=== PATIENT | male | born 1945 | race Caucasian/White ===

== ENCOUNTER 2017-04-08 09:14 | Inpatient (IN) | payer OTHER, BC ==
[2017-04-08 09:41] VITALS: BMI 39.5
[2017-04-08] MEDS ORDERED: ONDANSETRON 4 MG/2 ML VIAL IVPB ONE (09:42)
[2017-04-08] MEDS ORDERED: PANTOPRAZOLE SODIUM 40 MG in SODIUM CHLORIDE 100 ML IVPB ONE (09:42)
--- NOTE | 2017-04-08 09:42 | PDOC ---
History of Present Illness - General Chief Complaint: Pain Stated Complaint: ABDOMINAL PAIN Time Seen by Provider: 04/08/17 09:15 - History of Present Illness Initial Comments: 04/08/17 09:46 71 M with h/o HTN presenting to ER with RLQ abdominal pain and SOB. Pt was here last night for similar complaint of RLQ abdominal pain. Pt was found to have R inguinal interparietal hernia and DC'ed home. Pt denies any changes in the pain. He denies N/V. Is still having normal BMs (last one was last night). He states he took a percocet, which made him very drowsy, so he did not take any additional doses this morning. Today, he states the pain has been persistent, which prompted him to come to ER. Denies any acute changes in this pain. Incidentally, pt was found to be hypoxic to 93% and tachycardic to 110s in ER. Upon questioning, pt admits that he has been SOB for the past day or two. Denies any chest pain. Denies leg swelling. EKG done today shows pt in afib with RVR. Pt denies h/o afib, is not on AC. Pt follows with Dr. Jagjit Caballero, executive producer prom[employer]. I spoke with on-call executive producer promos covering for Dr. Caballero and obtained the following : EKG with NSR 04/2016 SHANNA 08/2016 showed mild LVH, EF 55-60% No documented history of atrial fibrillation. Past History - Past Medical History Allergies/Adverse Reactions: Allergies Allergy/AdvReac Type Severity Reaction Status Date / Time No Known Allergies Allergy Verified 04/08/17 09:23 Home Medications: Ambulatory Orders Felodipine [Felodipine ER] 10 mg PO DAILY 04/07/17 Labetalol HCl [Normodyne -] 300 mg PO BID 04/07/17 Olmesartan Medoxomil 40 mg PO BID 04/07/17 Oxycodone HCl/Acetaminophen [Percocet 5-325 mg Tablet] 2 tab PO Q6H PRN #8 tablet MDD 8 TABS 04/08/17 COPD: No HTN: Yes - Surgical History Abdominal Surgery: Yes (STOMACH RING) - Suicide/Smoking/Psychosocial Hx Smoking History: Never smoked Review of Systems - Review of Systems Comments:: 04/08/17 09:53 "GENERAL/CONSTITUTIONAL: No fever or chills. No weakness. HEAD, EYES, EARS, NOSE AND THROAT: No change in vision. No ear pain or discharge. No sore throat. CARDIOVASCULAR: +SOB, No chest pain. RESPIRATORY: No cough, wheezing, or hemoptysis. GASTROINTESTINAL: + RLQ pain, No nausea, vomiting, diarrhea or constipation. GENITOURINARY: No dysuria, frequency, or change in urination. MUSCULOSKELETAL: No joint or muscle swelling or pain. No neck or back pain. SKIN: No rash NEUROLOGIC: No headache, vertigo, loss of consciousness, or change in strength/ sensation. ENDOCRINE: No increased thirst. No abnormal weight change. HEMATOLOGIC/LYMPHATIC: No anemia, easy bleeding, or history of blood clots. ALLERGIC/IMMUNOLOGIC: No hives or skin allergy. " *Physical Exam - Physical Exam Comments: 04/08/17 10:08 "GENERAL: Awake, alert, and fully oriented, in no acute distress HEAD: No signs of trauma EYES: PERRLA, EOMI, sclera anicteric, conjunctiva clear ENT: Auricles normal inspection, hearing grossly normal, nares patent, oropharynx clear without exudates. Moist mucosa NECK: Nontender, no stepoffs, Normal ROM, supple, no lymphadenopathy, JVD, or masses LUNGS: Breath sounds equal, clear to auscultation bilaterally. No wheezes, and no crackles HEART: Rapid irregular rate and rhythm, normal S1 and S2, no murmurs, rubs or gallops ABDOMEN: Soft, nontender, normoactive bowel sounds. No guarding, no rebound. No masses : no palpable scrotal masses, no tenderness EXTREMITIES: Normal range of motion, no edema. No clubbing or cyanosis. No cords, erythema, or tenderness NEUROLOGICAL: Cranial nerves II through XII intact. 5/5 strength and sensation in all extremities, Normal speech, normal gait SKIN: Warm, Dry, normal turgor, no rashes or lesions noted. " Heart Score/ECG Review - ECG Impressions Comment:: 04/08/17 10:09 atrial fibrillation, no ST elevations or depressions, axis wnl, no TW inversions , rate 114 ED Treatment Course - LABORATORY CBC & Chemistry Diagram: 04/08/17 09:45 04/08/17 09:45 - RADIOLOGY Radiology Studies Ordered: Category Date Time Status CHEST PA & LAT [RAD] Stat Radiology 04/08/17 09:33 Ordered Medical Decision Making - Medical Decision Making 04/08/17 10:09 71 M with abdominal pain likely 2/2 R inguinal hernia found on CT last night, incidentally found to be in new afib. Pt reports SOB and was found to be hypoxic to 93% on RA, concerning for possible CHF component as well. With regard to abdominal pain, pt reports no changes since last night - is not clinically obstructed, no N/V/distention. - Labs, trop, BNP - CXR - Will need admission for A/C and echo - Possible surgical consult for hernia repair 04/08/17 11:33 Sign out given to hospitalist. *DC/Admit/Observation/Transfer Diagnosis at time of Disposition: CHF (congestive heart failure), Atrial fibrillation with RVR - Discharge Dispostion Condition at time of disposition: Stable Admit: Yes - Referrals - Patient Instructions - Post Discharge Activity - Attestations Physician Attestion: 04/08/17 11:33 I, Dr. Ramo Lind MD, attest that this document has been prepared under my direction and personally reviewed by me in its entirety. I further attest, that it accurately reflects all work, treatment, procedures and medical decision -making performed by me.
[2017-04-08] MEDS ORDERED: oxyCODONE HCL 5 MG TABLET PO ONE (09:43)
[2017-04-08] MEDS ORDERED: ONDANSETRON 4 MG/2 ML VIAL ONE (09:47)
[2017-04-08] MEDS ORDERED: PANTOPRAZOLE SODIUM 40 MG VIAL ONE (09:47)
[2017-04-08] MEDS ORDERED: morphine CARPU-JECT 4 MG/1 ML DISP.SYRIN IVPUSH ONE (10:02)
[2017-04-08] MEDS ORDERED: morphine CARPU-JECT 2 MG/1 ML DISP.SYRIN ONE (10:08)
[2017-04-08] MEDS ORDERED: ASPIRIN 325 MG TABLET PO ONE (10:11)
[2017-04-08 10:12] LABS: HEMOGLOBIN 14.5 GM/dl (11.7-16.9)
[2017-04-08 10:15] LABS: HEMATOCRIT 44.7 % (35.4-49); MCH 29.6 pg (25.7-33.7); MCHC 32.5 g/dl (32.0-35.9); MEAN CELL VOLUME 91.1 fl (80-96); PLATELET COUNT 207 K/MM3 (134-434); RBC 4.91 M/mm3 (4.00-5.60); RDW 13.7 % (11.9-15.9); WHITE BLOOD COUNT 12.1 K/mm3 (4.0-10.8)
[2017-04-08 10:17] LABS: ALBUMIN 4.2 g/dl (3.5-5.0); ALK PHOS 57 U/L (32-92); ANION GAP 9 (8-16); BILIRUBIN,TOTAL 1.5 mg/dl (0.2-1.0); BLOOD UREA NITROGEN 18 mg/dl (7-18); CALCIUM 8.4 mg/dl (8.4-10.2); CHLORIDE 100 mmol/L (98-107); CO2 25 mmol/L (22-28); CREATININE 1.5 mg/dl (0.6-1.3); GLUCOSE,RANDOM 152 mg/dl (74-106); POTASSIUM 3.8 mmol/L (3.5-5.1); SGOT/AST 78 U/L (10-42); SGPT/ALT 57 U/L (10-40); SODIUM 134 mmol/L (136-145); TOT PROT 6.9 g/dl (6.4-8.3)
[2017-04-08] MEDS ORDERED: ASPIRIN 325 MG TABLET ONE (10:18)
[2017-04-08 10:19] LABS: INR 1.13 (0.82-1.09); PROTHROMBIN TIME (PATIENT) 12.6 SEC (10.2-13.0)
[2017-04-08 10:20] LABS: ADD RBC MORPHOLOGY YES
[2017-04-08 11:01] LABS: PLATELET ESTIMATE ADEQUATE
[2017-04-08] MEDS ORDERED: PATIENT'S OWN MEDICATION (NON-FORMULARY) (Olmesartan Medoxomil [Olmesartan Medoxomil] 40 M PO SCH (11:45)
[2017-04-08] MEDS ORDERED: FELODIPINE 10 MG PO SCH (11:45)
[2017-04-08] MEDS ORDERED: amLODIPine BESYLATE 10 MG TABLET (FP) PO ONE (11:50)
[2017-04-08] MEDS ORDERED: amLODIPine BESYLATE 5 MG TABLET (FP) ONE (12:11)
--- NOTE | 2017-04-08 13:01 | CON.CARD ---
Consult Consult Specialty:: Cardiology Referred by:: Dr. Ramo Lind Reason for Consultation:: New onset atrial fibrillation - History of Present Illness Chief Complaint: Abd pain, new onset afib History of Present Illness: 71 yo male with HTN, mild CAD (per 2006 cath), obesity s/p lap band, who presented to ER with RLQ abdominal pain. Patient was previously seen here in ED last night with similar complaint of RLQ abdominal pain and was found to have R intraparietal hernia and DC'ed home. However, the pain persisted and he returned to ED today. He was found to be in new onset afib with HR 110s. BNP 7407. CXR negative for effusions or infiltrates. He currently denies chest pain , dyspnea, edema, or palpitations. 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 Jagjit Caballero, who last saw the patient in January 2017. - History Source History Provided By: Patient Limitations to Obtaining History: No Limitations - Past Medical History Cardio/Vascular: Yes: CAD (mild per 2006 cardiac cath), HTN Musculoskeletal: Yes: Osteoarthritis Additional Medical History: Obesity - Past Surgical History Past Surgical History: Yes: Bariatric Surgery (Lap band), Joint Replacement ( Bilateral total knee replacement) Additional Surgical History: Right foot bunion removal, C6-7 disckectomy with fusion 05/16/16 - Alcohol/Substance Use Hx Alcohol Use: Yes History of Substance Use: reports: None - Smoking History Smoking history: Never smoked Home Medications - Allergies Allergies/Adverse Reactions: Allergies Allergy/AdvReac Type Severity Reaction Status Date / Time No Known Allergies Allergy Verified 04/08/17 09:23 - Home Medications Home Medications: Ambulatory Orders Felodipine [Felodipine ER] 10 mg PO HS 04/07/17 Labetalol HCl [Normodyne -] 300 mg PO BID 04/07/17 Olmesartan Medoxomil 40 mg PO BID 04/07/17 Oxycodone HCl/Acetaminophen [Percocet 5-325 mg Tablet] 2 tab PO Q6H PRN #8 tablet MDD 8 TABS 04/08/17 Family Disease History - Family Disease History Family History: Unremarkable (No premature CAD) Review of Systems - Review of Systems Constitutional: reports: No Symptoms Eyes: reports: No Symptoms HENT: reports: No Symptoms Neck: reports: No Symptoms Cardiovascular: reports: No Symptoms Respiratory: reports: No Symptoms Gastrointestinal: reports: Abdominal Pain (Lower abdominal pain - resolved now) Genitourinary: reports: No Symptoms Musculoskeletal: reports: Joint Pain Neurological: reports: No Symptoms Endocrine: reports: No Symptoms Hematology/Lymphatic: reports: No Symptoms Psychiatric: reports: No Symptoms Vital Signs: Vital Signs Temperature 98.1 F 04/08/17 09:15 Pulse Rate 94 H 04/08/17 12:23 Respiratory Rate 20 04/08/17 12:23 Blood Pressure 137/79 04/08/17 12:23 O2 Sat by Pulse Oximetry (%) 99 04/08/17 12:23 Constitutional: Yes: No Distress, Obese Eyes: Yes: Conjunctiva Clear, EOM Intact HENT: Yes: Atraumatic, Normocephalic Respiratory: Yes: CTA Bilaterally Gastrointestinal: Yes: Normal Bowel Sounds, Soft. No: Tenderness Cardiovascular: Yes: Pulse Irregular JVD: No Carotid Bruit: No Heart Sounds: Yes: S1, S2 Murmur: No: Systolic Murmur Edema: No Peripheral Pulses WNL: Yes Neurological: Yes: Alert, Oriented, Cran Nerves II-XII Intact Psychiatric: Yes: Alert, Oriented - Other Data Labs, Other Data: CBC, BMP 04/08/17 09:45 04/08/17 09:45 INR, PTT INR 1.13 (0.82-1.09) 04/08/17 09:45 Troponin, BNP 04/08/17 04/08/17 09:45 09:45 Troponin I 0.03 B-Natriuretic Peptide 7407.36 H Troponin, BNP 04/08/17 04/08/17 09:45 09:45 Troponin I 0.03 B-Natriuretic Peptide 7407.36 H Echo: Report Reviewed (06/22/16 Echo (at [facility]): Dilated LV with normal systolic funcion, LVEF 56%. Borderline LVH. Mild biatrial enlargement. Mild MR. Trace TR. Mild NV. Trivial pericardial effusion. 09/06/16 SHANNA (at [facility]): Normal LV systolic function. No ASD or PFO with bubble study with agitated saline & with Valsalva. Mild TR. Trace TR. Trace NV. Mildly dilated aortic root (3.8 cm).) Imaging - Results Chest X-ray: Report Reviewed (04/08/17: No effusions or infiltrates. Cardiomegaly. Lap band device noted.), Image Reviewed Cat Scan: Report Reviewed (04/07/17 CT AP: 3.7 left renal cortical structure ( neoplastic versus complex cyst). Right sided intraparietal abdominal wall hernia. Laparoscopic gastric band. Sigmoid diverticulosis. Moderate umbilical hernia. Small left inguinal hernia.) Assessment/Plan 71 yo male with HTN, mild CAD (per 2007 cath), obesity s/p lap band, who presented to ER with RLQ abdominal pain. Previously seen in ED last night with similar complaint of RLQ abdominal pain and was found to have R intraparietal hernia. He was admitted today with continued intermittent right lower abdominal pain and was found to be in new onset afib with HR 110s. BNP 7407. CXR negative for effusions or infiltrates. Despite elevated BNP, no complaints or CXR findings to suggest CHF. Currently rate controlled on labetalol 300 mg po bid. [id number] score = 2 RECS: Will continue his labetalol 300 mg po bid for afib rate control. Continue amlodipine and valsartan for BP control. Will continue anticoagulation with Lovenox for now. 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 Jagjit Caballero ([facility]) in 1-2 weeks. Echocardiogram has been ordered but he does not have to stay for this study, which can be done as outpatient with his own high lift driver. Please call with questions.
--- NOTE | 2017-04-08 15:12 | HP ---
CHIEF COMPLAINT: Lower abdominal pain PCP: Dr. Lewis CARDIOLOGY: Dr. Jagjit Caballero HISTORY OF PRESENT ILLNESS: 71 year-old male with a PMH significant for HTN, CAD obesity s/p gastric banding , and umbilical hernia. Patient presented to the [facility] ED on 04/07 complaining of RLQ pain. CTAP showed a right interparietal abdominal wall hernia. Patient was given pain medication, he felt better, and was discharged home. This morning patient returned to the ED with the same complaint of lower abdominal pain. He also complained of SOB. ECG showed patient to be in atrial fibrillation, a new finding, with rate in 90's. 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 Smoking: no Alcohol: no Drugs: no Family History: father 80 non-Hodgkins lymphoma; mother 94 leg fracture complications; sister alive with a "blood" cancer; two brothers a & w Allergies No Known Allergies Allergy (Verified 04/08/17 09:23) HOME MEDICATIONS: Home Medications Medication Instructions Recorded Felodipine [Felodipine ER] 10 mg PO HS 04/07/17 Labetalol HCl [Normodyne -] 300 mg PO BID 04/07/17 Olmesartan Medoxomil 40 mg PO BID 04/07/17 Oxycodone HCl/Acetaminophen 2 tab PO Q6H PRN #8 tablet MDD 8 04/08/17 [Percocet 5-325 mg Tablet] TABS REVIEW OF SYSTEMS CONSTITUTIONAL: Absent: fever, chills, diaphoresis, generalized weakness, malaise, loss of appetite, weight change HEENT: Absent: rhinorrhea, nasal congestion, throat pain, throat swelling, difficulty swallowing, mouth swelling, ear pain, eye pain, visual changes CARDIOVASCULAR: +SOB Absent: chest pain, syncope, palpitations, irregular heart rate, lightheadedness , peripheral edema RESPIRATORY: Absent: cough, shortness of breath, dyspnea with exertion, orthopnea, wheezing, stridor, hemoptysis GASTROINTESTINAL: +lower abdominal pain Absent: abdominal distension, nausea, vomiting, diarrhea, constipation, melena, hematochezia GENITOURINARY: Absent: dysuria, frequency, urgency, hesitancy, hematuria, flank pain, genital pain MUSCULOSKELETAL: Absent: myalgia, arthralgia, joint swelling, back pain, neck pain SKIN: Absent: rash, itching, pallor HEMATOLOGIC/IMMUNOLOGIC: Absent: easy bleeding, easy bruising, lymphadenopathy, frequent infections ENDOCRINE: Absent: unexplained weight gain, unexplained weight loss, heat intolerance, cold intolerance NEUROLOGIC: Absent: headache, focal weakness or paresthesias, dizziness, unsteady gait, seizure, mental status changes, bladder or bowel incontinence PSYCHIATRIC: Absent: anxiety, depression, suicidal or homicidal ideation, hallucinations. PHYSICAL EXAMINATION Vital Signs - 24 hr 04/08/17 04/08/17 04/08/17 09:15 10:15 10:55 Temperature 98.1 F Pulse Rate 96 H Pulse Rate [ 96 H 96 H Left Radial] Respiratory 18 20 20 Rate Blood Pressure 140/93 Blood Pressure 150/90 127/83 [Left Arm] O2 Sat by Pulse 93 L 93 L 98 Oximetry (%) 04/08/17 04/08/17 04/08/17 12:23 13:19 14:22 Temperature 97.8 F 98.7 F Pulse Rate 97 H 91 H Pulse Rate [ 94 H Left Radial] Respiratory 20 18 18 Rate Blood Pressure 135/78 126/78 Blood Pressure 137/79 [Left Arm] O2 Sat by Pulse 99 93 L Oximetry (%) GENERAL: Awake, alert, and fully oriented, in no acute distress. HEAD: Normal with no signs of trauma. EYES: Pupils equal, round and reactive to light, extraocular movements intact, sclera anicteric, conjunctiva clear. No lid lag. EARS, NOSE, THROAT: Ears normal, nares patent, oropharynx clear without exudates. Moist mucous membranes. NECK: Normal range of motion, supple without lymphadenopathy, JVD, or masses. LUNGS: Breath sounds equal, clear to auscultation bilaterally. No wheezes, and no crackles. No accessory muscle use. HEART: Irregular S1 and S2 without murmur, rub or gallop. ABDOMEN: Soft, nontender, not distended, normoactive bowel sounds, no guarding, no rebound, no masses. MUSCULOSKELETAL: Normal range of motion at all joints. No bony deformities or tenderness. No CVA tenderness. UPPER EXTREMITIES: 2+ pulses, warm, well-perfused. No cyanosis. No clubbing. No peripheral edema. LOWER EXTREMITIES: 2+ pulses, warm, well-perfused. No calf tenderness. No peripheral edema. NEUROLOGICAL: Cranial nerves II-XII intact. Normal speech. Laboratory Results - last 24 hr 04/08/17 04/08/17 04/08/17 09:45 09:45 09:45 WBC 12.1 H RBC 4.91 Hgb 14.5 Hct 44.7 MCV 91.1 MCH 29.6 MCHC 32.5 RDW 13.7 Plt Count 207 MPV 10.0 Neutrophils % No Result Required. Neutrophils % (Manual) 85.0 H Lymphocytes % No Result Required. Lymphocytes % (Manual) 11.0 D Monocytes % (Manual) 4 Platelet Estimate Adequate PT with INR INR PTT (Actin FS) Sodium 134 L Potassium 3.8 Chloride 100 Carbon Dioxide 25 Anion Gap 9 BUN 18 Creatinine 1.5 H Creat Clearance w eGFR 46.27 Random Glucose 152 H D Calcium 8.4 Total Bilirubin 1.5 H D AST 78 H D ALT 57 H D Alkaline Phosphatase 57 Creatine Kinase Creatine Kinase Index CK-MB (CK-2) Troponin I B-Natriuretic Peptide 7407.36 H Total Protein 6.9 Albumin 4.2 04/08/17 04/08/17 04/08/17 09:45 09:45 09:45 WBC RBC Hgb Hct MCV MCH MCHC RDW Plt Count MPV Neutrophils % Neutrophils % (Manual) Lymphocytes % Lymphocytes % (Manual) Monocytes % (Manual) Platelet Estimate PT with INR 12.6 INR 1.13 PTT (Actin FS) 27.8 Sodium Potassium Chloride Carbon Dioxide Anion Gap BUN Creatinine Creat Clearance w eGFR Random Glucose Calcium Total Bilirubin AST ALT Alkaline Phosphatase Creatine Kinase Creatine Kinase Index CK-MB (CK-2) Troponin I 0.03 B-Natriuretic Peptide Total Protein Albumin 04/08/17 09:45 WBC RBC Hgb Hct MCV MCH MCHC RDW Plt Count MPV Neutrophils % Neutrophils % (Manual) Lymphocytes % Lymphocytes % (Manual) Monocytes % (Manual) Platelet Estimate PT with INR INR PTT (Actin FS) Sodium Potassium Chloride Carbon Dioxide Anion Gap BUN Creatinine Creat Clearance w eGFR Random Glucose Calcium Total Bilirubin AST ALT Alkaline Phosphatase Creatine Kinase 186 Creatine Kinase Index 2.9 CK-MB (CK-2) 5.4 H Troponin I B-Natriuretic Peptide I Total Protein Albumin Imaging 04/08/17 CXR: No effusions or infiltrates. Cardiomegaly. Lap band device noted 04/07/17 CTAP: 3.7cm left renal cortical structure (neoplastic versus complex cyst). Right sided intraparietal abdominal wall hernia. Laparoscopic gastric band. Sigmoid diverticulosis. Moderate umbilical hernia. Small left inguinal hernia; small bilateral pleural effusions; interstitial pulmonary congestion ASSESSMENT/PLAN 71 year-old male with a PMH significant for HTN, CAD obesity s/p gastric banding , and umbilical hernia. Admitted for heart failure and newly diagnosed atrial fibrillation with RVR. Also with right interparietal abdominal wall hernia. Atrial fibrillation with RVR, newly diagnosed --ECG afib @ 114, now in 90s --continue labetolol for rate control --[id number] score = 2 --start full dose lovenox, switch to Eliquis on discharge --troponins pending --cardiology following r/o Heart failure --06/22/16 Echo: dilated LV with normal systolic funcion, LVEF 56%. Borderline LVH. Mild biatrial enlargement. Mild MR. Trace TR. Mild VT. Trivial pericardial effusion --09/06/16 SHANNA: normal LV systolic function. No ASD or PFO with bubble study with agitated saline & with Valsalva. Mild TR. Trace TR. Trace VT. Mildly dilated aortic root (3.8 cm). --clinical signs of HF: BNP 7400, 04/07 CT shows small bilateral pleural effusions and interstitial pulmonary congestion, complains of mild SOB, elevated bili, transaminases consistent with congestive hepatopathy --will hold diuretic for now due to JERMAINE; wait for repeat bmp and urine studies JERMAINE --Cr 1.0 yesterday, 1.5 today --repeat bmp --urine studies, FeNa CAD --cath 06/2006: mild LAD and PDA changes, normal LV function --continue amlodipine, labetolol; not on regular ASA or statin Hypertension --continue amlodipine, valsartan, labetolol Obesity s/p gastric banding --no acute issues Interparietal abdominal wall hernia --outpatient follow up with surgeon FEN Fluids: PO intake adequate Electrolytes: replete as indicated Nutrition: low sodium DVT prophylaxis: on full dose Eliquis Dispo: continues to require inpatient care. Full code. Visit type - Emergency Visit Emergency Visit: Yes ED Registration Date: 04/08/17 Care time: The patient presented to the Emergency Department on the above date and was hospitalized for further evaluation of their emergent condition. - New Patient This patient is new to me today: Yes Date on this admission: 04/08/17 - Critical Care Critical Care patient: No
[2017-04-08] MEDS ORDERED: LABETALOL HCL 100 MG TABLET (FP) ONE ×2 (16:04→16:05)
[2017-04-08] MEDS: LABETALOL HCL 200 MG TABLET (FP) PO SCH (16:08)
[2017-04-08] MEDS: ENOXAPARIN NA (PORCINE) 120 MG/0.8 ML DISP.SYRIN SQ SCH ×2 (16:08→23:00)
[2017-04-08 18:12] LABS: ALBUMIN 3.9 g/dl (3.5-5.0); ALK PHOS 51 U/L (32-92); ANION GAP 9 (8-16); BILIRUBIN,TOTAL 1.4 mg/dl (0.2-1.0); BLOOD UREA NITROGEN 19 mg/dl (7-18); CHLORIDE 100 mmol/L (98-107); CO2 25 mmol/L (22-28); CREATININE 1.5 mg/dl (0.6-1.3); GLUCOSE,RANDOM 134 mg/dl (74-106); MAGNESIUM 1.8 mg/dL (1.8-2.4); POTASSIUM 3.9 mmol/L (3.5-5.1); SGOT/AST 149 U/L (10-42); SGPT/ALT 97 U/L (10-40); SODIUM 134 mmol/L (136-145); TOT PROT 6.4 g/dl (6.4-8.3)
[2017-04-08] MEDS: amLODIPine BESYLATE 10 MG TABLET (FP) PO SCH (21:46)
[2017-04-08] MEDS ORDERED: VALSARTAN 160 MG TABLET (UD) PO SCH (22:00)
--- NOTE | 2017-04-09 09:04 | PN ---
Progress Note, Physician History of Present Illness: Per patient and nursing this AM, patient had temp of 100.2. Denies chest pain or dyspnea. - Current Medication List Current Medications: Active Medications Amlodipine Besylate (Norvasc -) 10 mg PO HS [facility] Last Admin: 04/08/17 21:46 Dose: 10 mg Enoxaparin Sodium (Lovenox -) 120 mg SQ BID [facility] Last Admin: 04/08/17 23:00 Dose: 120 mg Labetalol HCl (Normodyne -) 300 mg PO BID [facility] Last Admin: 04/08/17 16:08 Dose: 300 mg Valsartan (Diovan -) 320 mg PO DAILY [facility] - Objective Vital Signs: Vital Signs Temperature 99.0 F 04/09/17 06:00 Pulse Rate 72 04/09/17 06:00 Respiratory Rate 19 04/09/17 06:00 Blood Pressure 143/94 04/09/17 06:00 O2 Sat by Pulse Oximetry (%) 96 04/09/17 07:46 Constitutional: Yes: No Distress, Obese Eyes: Yes: Conjunctiva Clear, EOM Intact HENT: Yes: Atraumatic, Normocephalic Cardiovascular: Yes: Regular Rate and Rhythm, Pulse Irregular. No: JVD, Murmur Respiratory: Yes: CTA Bilaterally Edema: No Neurological: Yes: Alert, Oriented, Cran Nerves II-XII Intact ...Motor Strength: WNL Psychiatric: Yes: WNL Labs: INR, PTT INR 1.13 (0.82-1.09) 04/08/17 09:45 Assessment/Plan 71 yo male with HTN, mild CAD (per 2007 cath), obesity s/p lap band, who presented to ER with RLQ abdominal pain. Previously seen in ED last night with similar complaint of RLQ abdominal pain and was found to have R intraparietal hernia. He was admitted today with continued intermittent right lower abdominal pain and was found to be in new onset afib with HR 110s. BNP 7407. CXR negative for effusions or infiltrates. Despite elevated BNP, no complaints or CXR findings to suggest CHF. Currently rate controlled on labetalol 300 mg po bid. [id number] score = 2 RECS: Will continue his labetalol 300 mg po bid for afib rate control. Continue amlodipine and valsartan for BP control. Will change to Eliquis 5 mg po bid today as patient to pursue surgical evaluation for hernia as outpatient, and he is insistent on being discharged today. Upon discharge patient to follow-up with Dr. Jagjit Caballero ([facility]) in 1 week. Echocardiogram has been ordered but he does not have to stay for this study, which can be done as outpatient with his own single ending machine operator. Patient may be discharged from cardiac standpoint. Discharge planning as per hospitalist service pending evaluation of other medical problems (e.g. temp 100.2). Please call with questions.
[2017-04-09 09:28] LABS: HEMATOCRIT 42.3 % (35.4-49); MCH 30.1 pg (25.7-33.7); MEAN CELL VOLUME 91.1 fl (80-96); MEAN PLT VOLUME 10.2 fl (7.5-11.1); PLATELET COUNT 181 K/MM3 (134-434); RBC 4.65 M/mm3 (4.00-5.60); RDW 14.1 % (11.9-15.9); WHITE BLOOD COUNT 18.4 K/mm3 (4.0-10.8)
[2017-04-09] MEDS ORDERED: LABETALOL HCL 100 MG TABLET (FP) ONE ×2 (09:28→21:43)
[2017-04-09] MEDS: VALSARTAN 160 MG TABLET (UD) PO SCH (09:50)
[2017-04-09] MEDS: LABETALOL HCL 200 MG TABLET (FP) PO SCH ×3 (09:50→22:09)
[2017-04-09] MEDS ORDERED: APIXABAN 5 MG TABLET PO SCH (10:00)
[2017-04-09 10:13] LABS: ALBUMIN 3.7 g/dl (3.5-5.0); ALK PHOS 52 U/L (32-92); ANION GAP 10 (8-16); BILIRUBIN,TOTAL 1.5 mg/dl (0.2-1.0); BLOOD UREA NITROGEN 21 mg/dl (7-18); CALCIUM 8.1 mg/dl (8.4-10.2); CHLORIDE 101 mmol/L (98-107); CO2 22 mmol/L (22-28); CREATININE 1.6 mg/dl (0.6-1.3); GLUCOSE,RANDOM 104 mg/dl (74-106); MAGNESIUM 1.7 mg/dL (1.8-2.4); POTASSIUM 3.8 mmol/L (3.5-5.1); SGOT/AST 75 U/L (10-42); SGPT/ALT 82 U/L (10-40); SODIUM 133 mmol/L (136-145)
[2017-04-09] MEDS ORDERED: MAGNESIUM OXIDE 400 MG TABLET (FP) PO ONE (11:58)
[2017-04-09 12:17] LABS: PLATELET ESTIMATE ADEQUATE
[2017-04-09 12:39] LABS: PH,URINE 5.5 (4.5-8); URINE APPEARANCE Clear; URINE BILIRUBIN 1+ (NEGATIVE); URINE GLUCOSE (UA) Negative (NEGATIVE); URINE KETONE 1+ (NEGATIVE); URINE LEUK ESTERASE Negative (NEGATIVE); URINE NITRITE Negative (NEGATIVE); URINE UROBILINOGEN 0.2 (0.2-1.0)
[2017-04-09 12:41] LABS: URINE BLOOD 2+ (NEGATIVE); URINE COLOR YELLOW; URINE PROTEIN 2+ (NEGATIVE)
[2017-04-09 12:42] LABS: URINE BACTERIA NONE SEEN /hpf (NEGATIVE); URINE CRYSTALS NONE SEEN /hpf (NONE SEEN)
[2017-04-09] MEDS ORDERED: LEVOFLOXACIN 750 MG IVPB 750 MG/150 ML BAG IVPB ONE (13:08)
--- NOTE | 2017-04-09 13:15 | PN ---
Physical Exam: SUBJECTIVE: Patient seen and examined. Complains of right upper and right lower abdominal pain, described as an "ache," with nausea and loss of appetite. Had episode of sweats this morning. OBJECTIVE: Vital Signs Period Temp Pulse Resp BP Sys/Garibay Pulse Ox Last 24 Hr 97.8 F-99.4 F 72-98 18-19 126-151/78-94 93-96 GENERAL: Awake, alert, and fully oriented, in no acute distress. LUNGS: Breath sounds equal, clear to auscultation bilaterally. No wheezes, and no crackles. No accessory muscle use. HEART: Irregular S1 and S2 ABDOMEN: Soft, not distended. Mild RLQ and RUQ tenderness. Umbilical hernia. Testicular and scrotal exam unremarkable. There are no areas of erythema. MUSCULOSKELETAL: Normal range of motion at all joints. No bony deformities or tenderness. No CVA tenderness. UPPER EXTREMITIES: 2+ pulses, warm, well-perfused. No cyanosis. No clubbing. No peripheral edema. LOWER EXTREMITIES: 2+ pulses, warm, well-perfused. No calf tenderness. No peripheral edema. NEUROLOGICAL: Cranial nerves II-XII intact. Normal speech. Laboratory Results - last 24 hr 04/08/17 04/08/17 04/08/17 17:00 17:30 17:30 WBC RBC Hgb Hct MCV MCH MCHC RDW Plt Count MPV Neutrophils % Neutrophils % (Manual) Band Neutrophils % Lymphocytes % Lymphocytes % (Manual) Monocytes % (Manual) Platelet Estimate ESR Sodium Potassium Chloride Carbon Dioxide Anion Gap BUN Creatinine Creat Clearance w eGFR Random Glucose Calcium Magnesium Total Bilirubin AST ALT Alkaline Phosphatase Troponin I Cancelled Total Protein Albumin Urine Color Urine Appearance Urine pH Ur Specific [place] Urine Protein Urine Glucose (UA) Urine Ketones Urine Blood Urine Nitrite Urine Bilirubin Urine Urobilinogen Ur Leukocyte Esterase Urine RBC Urine WBC Ur Epithelial Cells Urine Crystals Urine Bacteria Ur Random Sodium 65 Urine Creatinine 121.3 04/08/17 04/09/17 04/09/17 17:30 00:00 07:30 WBC RBC Hgb Hct MCV MCH MCHC RDW Plt Count MPV Neutrophils % Neutrophils % (Manual) Band Neutrophils % Lymphocytes % Lymphocytes % (Manual) Monocytes % (Manual) Platelet Estimate ESR 10 Sodium 134 L Potassium 3.9 Chloride 100 Carbon Dioxide 25 Anion Gap 9 BUN 19 H Creatinine 1.5 H Creat Clearance w eGFR 46.27 Random Glucose 134 H Calcium 8.0 L Magnesium 1.8 Total Bilirubin 1.4 H AST 149 H D ALT 97 H D Alkaline Phosphatase 51 Troponin I 0.03 0.02 Total Protein 6.4 Albumin 3.9 Urine Color Urine Appearance Urine pH Ur Specific [place] Urine Protein Urine Glucose (UA) Urine Ketones Urine Blood Urine Nitrite Urine Bilirubin Urine Urobilinogen Ur Leukocyte Esterase Urine RBC Urine WBC Ur Epithelial Cells Urine Crystals Urine Bacteria Ur Random Sodium Urine Creatinine 04/09/17 04/09/17 04/09/17 07:56 08:23 12:00 WBC 18.4 H D RBC 4.65 Hgb 14.0 Hct 42.3 MCV 91.1 MCH 30.1 MCHC 33.0 RDW 14.1 Plt Count 181 MPV 10.2 Neutrophils % No Result Required. Neutrophils % (Manual) 89.0 H Band Neutrophils % 5.0 Lymphocytes % No Result Required. Lymphocytes % (Manual) 4.0 L D Monocytes % (Manual) 2 L Platelet Estimate Adequate ESR Sodium 133 L Potassium 3.8 Chloride 101 Carbon Dioxide 22 Anion Gap 10 BUN 21 H Creatinine 1.6 H Creat Clearance w eGFR 42.95 Random Glucose 104 D Calcium 8.1 L Magnesium 1.7 L Total Bilirubin 1.5 H AST 75 H D ALT 82 H Alkaline Phosphatase 52 Troponin I Total Protein 6.0 L Albumin 3.7 Urine Color Yellow Urine Appearance Clear Urine pH 5.5 Ur Specific [place] 1.025 Urine Protein 2+ H Urine Glucose (UA) Negative Urine Ketones 1+ H Urine Blood 2+ H Urine Nitrite Negative Urine Bilirubin 1+ H Urine Urobilinogen 0.2 Ur Leukocyte Esterase Negative Urine RBC 2-5 Urine WBC None Ur Epithelial Cells None Urine Crystals None seen Urine Bacteria None seen Ur Random Sodium Urine Creatinine Active Medications Generic Name Dose Route Start Last Admin Trade Name Freq PRN Reason Stop Dose Admin Amlodipine Besylate 10 mg 04/08/17 22:00 04/08/17 21:46 Norvasc - PO 10 mg HS ROB Administration Apixaban 5 mg 04/09/17 10:00 04/09/17 09:51 Eliquis - PO 5 mg BID ROB Administration Metronidazole 500 mg in 100 mls @ 100 mls/hr 04/09/17 13:15 Flagyl 500mg Premixed Ivpb - IVPB Q8H-IV ROB Levofloxacin 750 mg in 150 mls @ 100 mls/hr 04/09/17 13:08 Levaquin 750 Mg Premixed Ivpb - IVPB 04/09/17 14:37 ONCE ONE Sodium Chloride 1,000 mls @ 75 mls/hr 04/09/17 13:15 Normal Saline - IV ASDIR ROB Labetalol HCl 300 mg 04/08/17 11:45 04/09/17 09:50 Normodyne - PO 300 mg BID ROB Administration Valsartan 320 mg 04/09/17 10:00 04/09/17 09:50 Diovan - PO 320 mg DAILY ROB Administration Imaging 04/09/17 CT chest: bilateral pleural effusions and atelectasis 04/07/17 CTAP: 3.7cm left renal cortical structure (neoplastic versus complex cyst). Right sided intraparietal abdominal wall hernia. Laparoscopic gastric band. Sigmoid diverticulosis. Moderate umbilical hernia. Small left inguinal hernia; small bilateral pleural effusions; interstitial pulmonary congestion ASSESSMENT/PLAN 71 year-old male with a PMH significant for HTN, CAD obesity s/p gastric banding , and umbilical hernia. Admitted for heart failure and newly diagnosed atrial fibrillation with RVR. Also with right abdominal wall hernia, umbilical hernia, left inguinal hernia. Sepsis of uncertain etiology Abdominal pain Hernias --febrile this afternoon to 100.7, WBC spike to 18.4k --chest imaging unrevealing; UA negative; cultures pending --s/p lap band x [address] Barrientos; with abdominal wall, umbilical, and inguinal hernias --start empiric levofloxacin and metronidazole --request surgical evaluation by Dr. Barrientos Atrial fibrillation with RVR, newly diagnosed --continue labetolol for rate control; can titrate to 400mg BID if indicated --[id number] score = 2; hold lovenox for possible surgical intervention; start heparin drip at 10pm (12 hours after last lovenox); PTT goal 50-70 --troponins neg x 3 --cardiology following r/o Heart failure --06/22/16 Echo: dilated LV with normal systolic funcion, LVEF 56%. Borderline LVH. Mild biatrial enlargement. Mild MR. Trace TR. Mild MS. Trivial pericardial effusion --09/06/16 SHANNA: normal LV systolic function. No ASD or PFO with bubble study with agitated saline & with Valsalva. Mild TR. Trace TR. Trace MS. Mildly dilated aortic root (3.8 cm). --clinical signs of HF: BNP 7400, small bilateral pleural effusions --no diuresis due to JERMAINE JERMAINE --Cr 1.0-->1.5-->1.6 --FeNa 0.6%, likely pre-renal --start gentle IV fluids CAD --cath 06/2006: mild LAD and PDA changes, normal LV function --continue amlodipine, labetolol; not on regular ASA or statin Hypertension --continue amlodipine, valsartan, labetolol FEN Fluids: PO intake adequate Electrolytes: replete as indicated Nutrition: low sodium DVT prophylaxis: heparin drip Dispo: continues to require inpatient care. Full code. Visit type - Emergency Visit Emergency Visit: Yes ED Registration Date: 04/08/17 Care time: The patient presented to the Emergency Department on the above date and was hospitalized for further evaluation of their emergent condition. - New Patient This patient is new to me today: No - Critical Care Critical Care patient: No
[2017-04-09] MEDS ORDERED: SODIUM CHLORIDE 500 ML IV STA (14:04)
[2017-04-09] MEDS: SODIUM CHLORIDE 1,000 ML IV SCH (14:40)
[2017-04-09] MEDS ORDERED: HEPARIN NA (PORCINE) 5,000 UNITS/ML 1ML VIAL IVPUSH PRN ×4 (15:53→22:00)
[2017-04-09] MEDS ORDERED: HEPARIN SOD,PORK IN 0.45% NACL 25,000 UNITS/500 ML INFUS.BAG IVPB SCH ×2 (16:00→22:00)
[2017-04-09] MEDS ORDERED: HEPARIN NA (PORCINE) 5,000 UNITS/ML 1ML VIAL IVPUSH ONE (22:00)
[2017-04-09] MEDS: HEPARIN INFUSION - 25,000 UNITS/500 ML INFUS.BAG IVPB SCH (22:08)
[2017-04-09] MEDS: amLODIPine BESYLATE 10 MG TABLET (FP) PO SCH (22:09)
[2017-04-10 01:53] LABS: ALBUMIN 2.4 g/dl (3.4-5.0); ALK PHOS 43 U/L (45-117); ANION GAP 9 (8-16); BILIRUBIN,TOTAL 0.6 mg/dL (0.2-1.0); BLOOD UREA NITROGEN 18 mg/dL (7-18); CHLORIDE 109 mmol/L (98-107); CO2 24 mmol/L (21-32); CREATININE 1.1 mg/dL (0.7-1.3); GLUCOSE,RANDOM 115 mg/dL (74-106); MAGNESIUM 1.6 mg/dL (1.8-2.4); POTASSIUM 3.2 mmol/L (3.5-5.1); SGOT/AST 45 U/L (15-37); SGPT/ALT 55 U/L (12-78); SODIUM 142 mmol/L (136-145); TOT PROT 4.7 g/dl (6.4-8.2)
[2017-04-10 01:57] LABS: CALCIUM 6.3 mg/dL (8.5-10.1)
[2017-04-10 04:20] LABS: ALBUMIN 2.9 g/dl (3.4-5.0); ALK PHOS 51 U/L (45-117); ANION GAP 7 (8-16); BILIRUBIN,TOTAL 0.7 mg/dL (0.2-1.0); BLOOD UREA NITROGEN 19 mg/dL (7-18); CALCIUM 7.9 mg/dL (8.5-10.1); CHLORIDE 101 mmol/L (98-107); CO2 29 mmol/L (21-32); CREATININE 1.5 mg/dL (0.7-1.3); GLUCOSE,RANDOM 137 mg/dL (74-106); MAGNESIUM 1.9 mg/dL (1.8-2.4); SGOT/AST 51 U/L (15-37); SGPT/ALT 65 U/L (12-78); SODIUM 137 mmol/L (136-145)
--- NOTE | 2017-04-10 08:09 | PN ---
Physical Exam: SUBJECTIVE: Patient seen and examined, reports ongoing abdominal pain, denies any chest pain or shortness of breath. OBJECTIVE: 71 year-old male with a PMH significant for HTN, CAD obesity s/p gastric banding , and umbilical hernia. Admitted for heart failure and newly diagnosed atrial fibrillation with RVR. Also with right abdominal wall hernia, umbilical hernia, left inguinal hernia. Vital Signs Period Temp Pulse Resp BP Sys/Garibay Pulse Ox Last 24 Hr 99 F-100.7 F 89-102 19-20 114-148/54-96 94-96 GENERAL: The patient is awake, alert, and fully oriented, in no acute distress. HEAD: Normal with no signs of trauma. EYES: PERRL, extraocular movements intact, sclera anicteric, conjunctiva clear. No ptosis. ENT: Ears normal, nares patent, oropharynx clear without exudates, moist mucous membranes. NECK: Trachea midline, full range of motion, supple. LUNGS: Breath sounds equal, clear to auscultation bilaterally, no wheezes, no crackles, no accessory muscle use. HEART: irregular rate and rhythm, S1, S2 without murmur, rub or gallop. ABDOMEN: Soft, obese, reducible umbilical hernia and right abdominal wall hernia with tenderness, nondistended, normoactive bowel sounds, no guarding, no rebound, no hepatosplenomegaly, no masses. EXTREMITIES: 2+ pulses, warm, well-perfused, no edema. NEUROLOGICAL: Cranial nerves II through XII grossly intact. Normal speech, gait not observed. PSYCH: Normal mood, normal affect. SKIN: Warm, dry, normal turgor, no rashes or lesions noted Laboratory Results - last 24 hr CBC WBC 19.4 K/mm3 (4.0-10.8) H 04/10/17 10:45 RBC 4.57 M/mm3 (4.00-5.60) 04/10/17 10:45 Hgb 13.5 GM/dl (11.7-16.9) 04/10/17 10:45 Hct 41.4 % (35.4-49) 04/10/17 10:45 MCV 90.6 fl (80-96) 04/10/17 10:45 MCH 29.6 pg (25.7-33.7) 04/10/17 10:45 MCHC 32.7 g/dl (32.0-35.9) 04/10/17 10:45 RDW 13.8 % (11.9-15.9) 04/10/17 10:45 Plt Count 186 K/MM3 (134-434) 04/10/17 10:45 MPV 10.4 fl (7.5-11.1) 04/10/17 10:45 Neutrophils % 81.0 % (42.8-82.8) 04/10/17 10:45 Neutrophils % (Manual) 89.0 % (42.8-82.8) H 04/09/17 08:23 Band Neutrophils % 5.0 % (0-10) 04/09/17 08:23 Lymphocytes % 4.0 % (8-40) L 04/10/17 10:45 Lymphocytes % (Manual) 4.0 % (8-40) L D 04/09/17 08:23 Monocytes % 13.8 % (3.8-10.2) H 04/10/17 10:45 Monocytes % (Manual) 2 % (3.8-10.2) L 04/09/17 08:23 Eosinophils % 0.0 % (0-4.5) 04/10/17 10:45 Basophils % 1.2 % (0-2.0) 04/10/17 10:45 Platelet Estimate Adequate 04/09/17 08:23 ESR 10 mm/hr (0-20) 04/09/17 07:30 CMP Sodium 133 mmol/L (136-145) L 04/10/17 10:45 Potassium 3.8 mmol/L (3.5-5.1) 04/10/17 10:45 Chloride 99 mmol/L (98-107) 04/10/17 10:45 Carbon Dioxide 24 mmol/L (22-28) 04/10/17 10:45 Anion Gap 10 (8-16) 04/10/17 10:45 BUN 17 mg/dl (7-18) 04/10/17 10:45 Creatinine 1.3 mg/dl (0.6-1.3) 04/10/17 10:45 Creat Clearance w eGFR 54.57 (>60) 04/10/17 10:45 Random Glucose 142 mg/dl (74-106) H D 04/10/17 10:45 Lactic Acid 0.9 mmol/L (0.0-2.0) 04/09/17 20:00 Calcium 8.0 mg/dl (8.4-10.2) L 04/10/17 10:45 Phosphorus 2.0 mg/dl (2.5-4.6) L 04/10/17 10:45 Magnesium 1.8 mg/dL (1.8-2.4) 04/10/17 10:45 Total Bilirubin 1.0 mg/dl (0.2-1.0) D 04/10/17 10:45 AST 36 U/L (10-42) D 04/10/17 10:45 ALT 52 U/L (10-40) H D 04/10/17 10:45 Alkaline Phosphatase 49 U/L (32-92) 04/10/17 10:45 Creatine Kinase 186 IU/L (39-308) 04/08/17 09:45 Creatine Kinase Index 2.9 % (0.0-5.0) 04/08/17 09:45 CK-MB (CK-2) 5.4 ng/mL (0.3-4.0) H 04/08/17 09:45 Troponin I 0.02 ng/ml (0.00-0.05) 04/09/17 00:00 C-Reactive Protein 17.9 MG/DL (0.00-0.3) H 04/09/17 13:20 B-Natriuretic Peptide 7407.36 pg/ml (5-125) H 04/08/17 09:45 Total Protein 6.1 g/dl (6.4-8.3) L 04/10/17 10:45 Albumin 3.3 g/dl (3.5-5.0) L 04/10/17 10:45 Active Medications Generic Name Dose Route Start Last Admin Trade Name Freq PRN Reason Stop Dose Admin Amlodipine Besylate 10 mg 04/08/17 22:00 04/09/17 22:09 Norvasc - PO 10 mg HS ROB Administration Heparin Sodium (Porcine) 1,000 unit 04/09/17 22:00 Heparin - IVPUSH PRN PRN Heparin Heparin Sodium (Porcine) 5,000 unit 04/09/17 22:00 Heparin - IVPUSH PRN PRN Heparin Metronidazole 500 mg in 100 mls @ 100 mls/hr 04/09/17 13:15 04/10/17 02:31 Flagyl 500mg Premixed Ivpb - IVPB 100 mls/hr Q8H-IV ROB Administration Sodium Chloride 1,000 mls @ 75 mls/hr 04/09/17 13:15 04/09/17 14:40 Normal Saline - IV 75 mls/hr ASDIR ROB Administration Levofloxacin 750 mg in 150 mls @ 100 mls/hr 04/10/17 10:00 Levaquin 750 Mg Premixed Ivpb - IVPB DAILY ROB Heparin Sodium/Dextrose 25,000 units in 500 mls @ 36 mls/hr 04/09/17 22:15 04:28 Heparin Infusion - IVPB 1,700 units/hr TITR ROB 34 mls/hr Protocol Titration 1,800 UNITS/HR Labetalol HCl 300 mg 04/08/17 11:45 04/09/17 22:09 Normodyne - PO 300 mg BID ROB Administration Valsartan 320 mg 04/09/17 10:00 04/09/17 09:50 Diovan - PO 320 mg DAILY ROB Administration Microbiology 04/09/17 13:20 Blood - Peripheral Venous Blood Culture - Preliminary NO GROWTH OBTAINED AFTER 24 HOURS, INCUBATION TO CONTINUE FOR 4 DAYS. 04/09/17 13:20 Blood - Peripheral Venous Blood Culture - Preliminary NO GROWTH OBTAINED AFTER 24 HOURS, INCUBATION TO CONTINUE FOR 4 DAYS. Imaging 04/09/17 CT chest: bilateral pleural effusions and atelectasis 04/07/17 CTAP: 3.7cm left renal cortical structure (neoplastic versus complex cyst). Right sided intraparietal abdominal wall hernia. Laparoscopic gastric band. Sigmoid diverticulosis. Moderate umbilical hernia. Small left inguinal hernia; small bilateral pleural effusions; interstitial pulmonary congestion ASSESSMENT/PLAN 1) ID Sepsis of uncertain etiology Abdominal pain Hernias - low grade temp noted, elevated wbc, blood cultures are negative to date, pending urine culture -s/p lap band x [address] Barrientos; multiple phone calls to Dr Santamaria's answering service, voice mail left on cell phone, case discussed with Dr Zazueta ( baratric surgeon) appreciate input - continue levofloxacin and metronidazole 2) cardiovascular Atrial fibrillation with RVR, newly diagnosed - continue labetolol for rate control; can titrate to 400mg BID if indicated - [id number] score = 2, hold lovenox for possible surgical intervention; continue heparin drip - troponin x 3 negative - cardiology consulted and following r/o Heart failure - elevated bnp, pt appear euvolemic on exam, 06/22/16 Echo: dilated LV with normal systolic funcion, LVEF 56%. Borderline LVH. Mild biatrial enlargement. Mild MR. Trace TR. Mild RI. Trivial pericardial effusion, 09/06/16 SHANNA: normal LV systolic function. No ASD or PFO with bubble study with agitated saline & with Valsalva. Mild TR. Trace TR. Trace RI. Mildly dilated aortic root (3.8 cm) . CAD - cath 06/2006: mild LAD and PDA changes, normal LV function Hypertension -continue amlodipine, valsartan, labetolol 3) nephrology JERMAINE - Cr 1.3, downtrending, likely, likely pre-renal, improved with gentle hydration. FEN Fluids: PO intake adequate Electrolytes: replete as indicated Nutrition: low sodium DVT prophylaxis: heparin drip Dispo: continues to require inpatient care. Full code. Visit type - Emergency Visit Emergency Visit: Yes ED Registration Date: 04/08/17 Care time: The patient presented to the Emergency Department on the above date and was hospitalized for further evaluation of their emergent condition. - New Patient This patient is new to me today: Yes Date on this admission: 04/10/17 - Critical Care Critical Care patient: No - Discharge Referral Referred to [facility] No
[2017-04-10] MEDS ORDERED: LEVOFLOXACIN 750 MG IVPB 750 MG/150 ML BAG IVPB SCH (10:00)
[2017-04-10] MEDS: LABETALOL HCL 100 MG TABLET (FP) PO SCH ×2 (10:29→21:41)
[2017-04-10] MEDS: VALSARTAN 160 MG TABLET (UD) PO SCH (10:29)
[2017-04-10 11:21] LABS: BASO % 1.2 % (0-2.0); HEMATOCRIT 41.4 % (35.4-49); HEMOGLOBIN 13.5 GM/dl (11.7-16.9); MCH 29.6 pg (25.7-33.7); MCHC 32.7 g/dl (32.0-35.9); MEAN CELL VOLUME 90.6 fl (80-96); MEAN PLT VOLUME 10.4 fl (7.5-11.1); MONO % 13.8 % (3.8-10.2); PLATELET COUNT 186 K/MM3 (134-434); RBC 4.57 M/mm3 (4.00-5.60); RDW 13.8 % (11.9-15.9); WHITE BLOOD COUNT 19.4 K/mm3 (4.0-10.8)
[2017-04-10 11:33] LABS: ALBUMIN 3.3 g/dl (3.5-5.0); ALK PHOS 49 U/L (32-92); ANION GAP 10 (8-16); BLOOD UREA NITROGEN 17 mg/dl (7-18); CHLORIDE 99 mmol/L (98-107); CO2 24 mmol/L (22-28); CREATININE 1.3 mg/dl (0.6-1.3); GLUCOSE,RANDOM 142 mg/dl (74-106); MAGNESIUM 1.8 mg/dL (1.8-2.4); POTASSIUM 3.8 mmol/L (3.5-5.1); SGOT/AST 36 U/L (10-42); SGPT/ALT 52 U/L (10-40); SODIUM 133 mmol/L (136-145); TOT PROT 6.1 g/dl (6.4-8.3)
[2017-04-10] MEDS ORDERED: MAGNESIUM SULF 50% (8.12 MEQ/2 ML-1 GM VIAL) IVPB ONE (11:50)
[2017-04-10] MEDS ORDERED: MAGNESIUM SULF 50% (8.12 MEQ/2 ML-1 GM VIAL) ONE (11:58)
[2017-04-10] MEDS ORDERED: morphine SULFATE 4 MG/ML VIAL ONE (11:59)
[2017-04-10] MEDS ORDERED: MAGNESIUM 1GM/D5W - 1 GM/100 ML IVPB IVPB ONE (12:00)
[2017-04-10] MEDS: NAPH,MB-DB/K PH,MBDB POWDER PACKET PO SCH ×2 (12:03→21:42)
[2017-04-10] MEDS: morphine SULFATE 4 MG/ML VIAL IVPB PRN (12:04)
[2017-04-10] MEDS: HEPARIN INFUSION - 25,000 UNITS/500 ML INFUS.BAG IVPB SCH (12:12)
--- NOTE | 2017-04-10 13:07 | EKG ---
Test Reason : Blood Pressure : / mmHG Vent. Rate : 114 BPM Atrial Rate : 127 BPM P-R Int : 000 ms QRS Dur : 102 ms QT Int : 356 ms P-R-T Axes : 000 008 -01 degrees QTc Int : 490 ms ATRIAL FIBRILLATION WITH RAPID VENTRICULAR RESPONSE WITH PREMATURE VENTRICULAR OR ABERRANTLY CONDUCTED COMPLEXES NONSPECIFIC ST AND T WAVE ABNORMALITY ABNORMAL ECG NO PREVIOUS ECGS AVAILABLE Confirmed by DESMOND HAMEED MD ([id number]) on 04/10/2017 1:07:15 PM Referred By: HOWARD Confirmed By:DESMOND HAMEED MD
[2017-04-10] MEDS: SODIUM CHLORIDE 1,000 ML IV SCH (15:34)
--- NOTE | 2017-04-10 16:08 | PN ---
Progress Note, Physician History of Present Illness: No new complaints - Current Medication List Current Medications: Active Medications Amlodipine Besylate (Norvasc -) 10 mg PO HS COUNTS INCLUDE 234 BEDS AT THE [facility] Last Admin: 04/09/17 22:09 Dose: 10 mg Heparin Sodium (Porcine) (Heparin -) 1,000 unit IVPUSH PRN PRN PRN Reason: Heparin Heparin Sodium (Porcine) (Heparin -) 5,000 unit IVPUSH PRN PRN PRN Reason: Heparin Metronidazole (Flagyl 500mg Premixed Ivpb -) 500 mg in 100 mls @ 100 mls/hr IVPB Q8H-IV ROB Last Admin: 04/10/17 10:21 Dose: 100 mls/hr Sodium Chloride (Normal Saline -) 1,000 mls @ 75 mls/hr IV ASDIR ROB Last Admin: 04/09/17 14:40 Dose: 75 mls/hr Levofloxacin (Levaquin 750 Mg Premixed Ivpb -) 750 mg in 150 mls @ 100 mls/hr IVPB DAILY COUNTS INCLUDE 234 BEDS AT THE [facility] Last Admin: 04/10/17 10:28 Dose: 100 mls/hr Heparin Sodium/Dextrose (Heparin Infusion -) 25,000 units in 500 mls @ 36 mls/ hr IVPB TITR ROB; 1,800 UNITS/HR PRN Reason: Protocol Last Admin: 04/10/17 12:12 Dose: 1,800 units/hr, 36 mls/hr Labetalol HCl (Normodyne -) 300 mg PO BID COUNTS INCLUDE 234 BEDS AT THE [facility] Last Admin: 04/10/17 10:29 Dose: 300 mg Morphine Sulfate (Morphine Sulfate) 4 mg IVPB Q6H PRN PRN Reason: PAIN LEVEL 7 - 10 Last Admin: 04/10/17 12:04 Dose: 4 mg Potassium Phos/Sodium Phos (Phos-Nak Packet -) 1 packet PO BID COUNTS INCLUDE 234 BEDS AT THE [facility] Last Admin: 04/10/17 12:03 Dose: 1 packet Valsartan (Diovan -) 320 mg PO DAILY COUNTS INCLUDE 234 BEDS AT THE [facility] Last Admin: 04/10/17 10:29 Dose: 320 mg - Objective Vital Signs: Vital Signs Temperature 99.2 F 04/10/17 14:00 Pulse Rate 108 H 04/10/17 14:00 Respiratory Rate 19 04/10/17 14:00 Blood Pressure 129/85 04/10/17 14:00 O2 Sat by Pulse Oximetry (%) 95 04/10/17 14:00 Constitutional: Yes: No Distress Eyes: Yes: Conjunctiva Clear HENT: Yes: Atraumatic Cardiovascular: Yes: Pulse Irregular Respiratory: Yes: CTA Bilaterally Gastrointestinal: Yes: Normal Bowel Sounds, Abdomen, Obese, Tenderness Extremities: Yes: Other (warm) Edema: No Peripheral Pulses WNL: Yes Neurological: Yes: Alert, Oriented Psychiatric: Yes: Alert, Oriented Labs: CBC, BMP 04/10/17 10:45 04/10/17 10:45 INR, PTT INR 1.13 (0.82-1.09) 04/08/17 09:45 - ....Imaging Other: Other (tele -. afib with mod v response. A bit fater earlier) Assessment/Plan 71 yo male with HTN, mild CAD (per 2007 cath), obesity s/p lap band, who presented to ER with RLQ abdominal pain. Previously seen in ED last night with similar complaint of RLQ abdominal pain and was found to have R intraparietal hernia. He was admitted today with continued intermittent right lower abdominal pain and was found to be in new onset afib with HR 110s. BNP 7407. CXR negative for effusions or infiltrates. Despite elevated BNP, no complaints or CXR findings to suggest CHF. Currently rate controlled on labetalol 300 mg po bid -. was faster earlier when in pain [id number] score = 2 Echo wut hEF mildly reduced at 45-50% No CHF RECS: Continue his labetalol 300 mg po bid for afib rate control -.may titrate up prn Continue amlodipine and valsartan for BP control. Cont IV heparin for now, in case he needs surgical intervention Eliquis 5 bid when feasible Per IM/surgery Upon d/c pt to follow-up with his chief clinical officer Dr. Jagjit Caballero ([facility]) in 1 week.
--- NOTE | 2017-04-10 17:10 | CONSULT ---
Consult - text type - Consultation Consultation Note: Asked to see this 71 y.o. male with abdominal pain secondary to umbilical hernia for a few days. Pt seen in ER 04/07/[address] scan showed non-obstructing , non-incarcerated hernia. Pt returned 04/08/17 with continued abdominal pain and was admitted with new onset Afib. Pt treated by Cardiology. Pt states pain occurs intermittently and can be intense. C/O constipation, denies any vomiting. Ct scan of 04/10/17 shows umbilical hernia with apparent fat, no signs of intestinal involvement. Right kidney shows evidence of pyelonephitis or multiple areas of ischemia. Also spleen shows multiple ischemic episodes. P/E- General- awake, alert, NAD Abd- umbilical hernia noted Mild tenderness on palpation WBC-19.4 H/H-13.5/41.4 BUN-17 CR-1.3 I- Possible right kidney pyelonephritis Umbilical hernia P- IV antibiotics to cover pyelonephritis Consider ID consult When kidney, cardiac status stable, will schedule umbilical hernia repair
--- NOTE | 2017-04-10 17:34 | CONSULT ---
Consult Consult Specialty:: Surgery Reason for Consultation:: Abdominal pain - History of Present Illness History of Present Illness: 71 male s/p lap band in the past Presents with acute onset of pain near his umbilicus Known umbilical hernia Pain now controlled On diet and tolerating CT A/P shows pyelonephritis vs renal infarcts, splenic infarcts, umbilical hernia New onset A fib On IV heparin - History Source History Provided By: Patient, Medical Record Limitations to Obtaining History: No Limitations - Past Medical History Cardio/Vascular: Yes: CAD (mild per 2006 cardiac cath), HTN Musculoskeletal: Yes: Osteoarthritis Additional Medical History: Obesity - Past Surgical History Past Surgical History: Yes: Bariatric Surgery (Lap band), Joint Replacement ( Bilateral total knee replacement) Additional Surgical History: Right foot bunion removal, C6-7 disckectomy with fusion 05/16/16 - Alcohol/Substance Use Hx Alcohol Use: No History of Substance Use: reports: None - Smoking History Smoking history: Never smoked Have you smoked in the past 12 months: No Home Medications - Allergies Allergies/Adverse Reactions: Allergies Allergy/AdvReac Type Severity Reaction Status Date / Time No Known Allergies Allergy Verified 04/08/17 09:23 - Home Medications Home Medications: Ambulatory Orders Felodipine [Felodipine ER] 10 mg PO HS 04/07/17 Labetalol HCl [Normodyne -] 300 mg PO BID 04/07/17 Olmesartan Medoxomil 40 mg PO BID 04/07/17 Oxycodone HCl/Acetaminophen [Percocet 5-325 mg Tablet] 2 tab PO Q6H PRN #8 tablet MDD 8 TABS 04/08/17 Family Disease History - Family Disease History Family History: Unremarkable Review of Systems - Review of Systems Constitutional: denies: Chills, Fever Neck: reports: No Symptoms Cardiovascular: denies: Chest Pain Respiratory: denies: Cough Gastrointestinal: reports: Abdominal Pain, Constipation Neurological: denies: Change in LOC Pain Intensity: 4 Physical Exam Vital Signs: Vital Signs Temperature 99.2 F 04/10/17 14:00 Pulse Rate 108 H 04/10/17 14:00 Respiratory Rate 19 04/10/17 14:00 Blood Pressure 129/85 04/10/17 14:00 O2 Sat by Pulse Oximetry (%) 95 04/10/17 14:00 Constitutional: Yes: Calm Neck: Yes: Supple Cardiovascular: Yes: Pulse Irregular Respiratory: Yes: WNL Gastrointestinal: Yes: Soft, Abdomen, Obese, Other (Umbilical hernia- partially reducible, no tenderness currently, no erythema). No: Tenderness, Rebound Neurological: Yes: Alert, Oriented Labs: CBC, BMP 04/10/17 10:45 04/10/17 10:45 Imaging - Results Cat Scan: Report Reviewed, Image Reviewed Problem List - Problems (1) Umbilical hernia with obstruction Code(s): K42.0 - UMBILICAL HERNIA WITH OBSTRUCTION, WITHOUT GANGRENE Assessment/Plan 71 male with new onset A Fib now on IV heparin Elevated WBC with pyelonephritis vs renal infarcts and splenic infarcts Umbilical hernia causing pain Needs cardiology clearance for hernia repair on this admission Will follow WBC Abdominal binder Plan for repair with possible mesh
[2017-04-10] MEDS ORDERED: MEROPENEM 1 GM PUSH 1 GM/20 ML DISP.SYRIN IVPUSH ONE ×2 (17:45→18:45)
[2017-04-10] MEDS ORDERED: MEROPENEM 1 GM in DEXTROSE 5%-WATER - 100 ML IVPB SCH (18:00)
--- NOTE | 2017-04-10 18:31 | HOSP ---
Subjective - Review of Symptoms Events since last encounter: Reviewed results of CTAP. Reviewed echo. ID consulted, switch to meropenem. Discussed with Dr. Phillips. Ordered SHANNA at [place] tomorrow. Physical Examination Vital Signs: Vital Signs Temperature 99.2 F 04/10/17 14:00 Pulse Rate 108 H 04/10/17 14:00 Respiratory Rate 19 04/10/17 14:00 Blood Pressure 129/85 04/10/17 14:00 O2 Sat by Pulse Oximetry (%) 95 04/10/17 14:00 Labs: CBC, BMP 04/10/17 10:45 04/10/17 10:45
[2017-04-10] MEDS: amLODIPine BESYLATE 10 MG TABLET (FP) PO SCH (21:41)
[2017-04-11] MEDS: morphine SULFATE 4 MG/ML VIAL IVPB PRN ×2 (02:19→14:11)
[2017-04-11] MEDS: HEPARIN INFUSION - 25,000 UNITS/500 ML INFUS.BAG IVPB SCH (06:03)
[2017-04-11 08:24] LABS: ALBUMIN 2.8 g/dl (3.5-5.0); ALK PHOS 45 U/L (32-92); ANION GAP 5 (8-16); BILIRUBIN,TOTAL 0.7 mg/dl (0.2-1.0); BLOOD UREA NITROGEN 17 mg/dl (7-18); CALCIUM 7.5 mg/dl (8.4-10.2); CHLORIDE 101 mmol/L (98-107); CO2 25 mmol/L (22-28); CREATININE 1.3 mg/dl (0.6-1.3); GLUCOSE,RANDOM 130 mg/dl (74-106); MAGNESIUM 2.1 mg/dL (1.8-2.4); POTASSIUM 3.2 mmol/L (3.5-5.1); SGOT/AST 26 U/L (10-42); SGPT/ALT 39 U/L (10-40); SODIUM 131 mmol/L (136-145); TOT PROT 5.4 g/dl (6.4-8.3)
--- NOTE | 2017-04-11 08:43 | PN ---
Physical Exam: SUBJECTIVE: Patient seen and examined, reports intermittent lower abdominal pain , denies any tactile fevers. OBJECTIVE: patient is a 71 year-old male with a PMH significant for HTN, CAD obesity s/p gastric banding, and umbilical hernia. patient was admitted for systolic congestive heart failure and newly diagnosed atrial fibrillation with RVR, right abdominal wall hernia, umbilical hernia, left inguinal hernia, and sepsis. Vital Signs Period Temp Pulse Resp BP Sys/Garibay Pulse Ox Last 24 Hr 99.2 F-99.6 F 89-108 16-19 113-129/55-85 94-96 GENERAL: The patient is awake, alert, and fully oriented, in no acute distress. HEAD: Normal with no signs of trauma. EYES: PERRL, extraocular movements intact, sclera anicteric, conjunctiva clear. No ptosis. ENT: Ears normal, nares patent, oropharynx clear without exudates, moist mucous membranes. NECK: Trachea midline, full range of motion, supple. LUNGS: Breath sounds equal, clear to auscultation bilaterally, no wheezes, no crackles, no accessory muscle use. HEART: irregular rate and rhythm, S1, S2 without murmur, rub or gallop. ABDOMEN: Soft, obese, reducible umbilical hernia and right abdominal wall hernia with tenderness, nondistended, normoactive bowel sounds, no guarding, no rebound, no hepatosplenomegaly, no masses. EXTREMITIES: 2+ pulses, warm, well-perfused, no edema. NEUROLOGICAL: Cranial nerves II through XII grossly intact. Normal speech, gait not observed. PSYCH: Normal mood, normal affect. SKIN: Warm, dry, normal turgor, no rashes or lesions noted Laboratory Results - last 24 hr CBC WBC 16.1 K/mm3 (4.0-10.8) H 04/11/17 07:48 RBC 4.05 M/mm3 (4.00-5.60) 04/11/17 07:48 Hgb 12.4 GM/dl (11.7-16.9) 04/11/17 07:48 Hct 36.9 % (35.4-49) 04/11/17 07:48 MCV 91.1 fl (80-96) 04/11/17 07:48 MCH 30.6 pg (25.7-33.7) 04/11/17 07:48 MCHC 33.6 g/dl (32.0-35.9) 04/11/17 07:48 RDW 13.8 % (11.9-15.9) 04/11/17 07:48 Plt Count 187 K/MM3 (134-434) 04/11/17 07:48 MPV 10.2 fl (7.5-11.1) 04/11/17 07:48 Neutrophils % 88.0 % (42.8-82.8) H 04/11/17 07:48 Neutrophils % (Manual) 89.0 % (42.8-82.8) H 04/09/17 08:23 Band Neutrophils % 5.0 % (0-10) 04/09/17 08:23 Lymphocytes % 5.0 % (8-40) L D 04/11/17 07:48 Lymphocytes % (Manual) 4.0 % (8-40) L D 04/09/17 08:23 Monocytes % 6.9 % (3.8-10.2) 04/11/17 07:48 Monocytes % (Manual) 2 % (3.8-10.2) L 04/09/17 08:23 Eosinophils % 0.0 % (0-4.5) 04/11/17 07:48 Basophils % 0.1 % (0-2.0) 04/11/17 07:48 Platelet Estimate Adequate 04/09/17 08:23 ESR 10 mm/hr (0-20) 04/09/17 07:30 CMP Sodium 131 mmol/L (136-145) L 04/11/17 07:48 Potassium 3.2 mmol/L (3.5-5.1) L 04/11/17 07:48 Chloride 101 mmol/L (98-107) 04/11/17 07:48 Carbon Dioxide 25 mmol/L (22-28) 04/11/17 07:48 Anion Gap 5 (8-16) L 04/11/17 07:48 BUN 17 mg/dl (7-18) 04/11/17 07:48 Creatinine 1.3 mg/dl (0.6-1.3) 04/11/17 07:48 Creat Clearance w eGFR 54.57 (>60) 04/11/17 07:48 Random Glucose 130 mg/dl (74-106) H 04/11/17 07:48 Lactic Acid 0.9 mmol/L (0.0-2.0) 04/09/17 20:00 Calcium 7.5 mg/dl (8.4-10.2) L 04/11/17 07:48 Phosphorus 3.0 mg/dl (2.5-4.6) D 04/11/17 07:48 Magnesium 2.1 mg/dL (1.8-2.4) 04/11/17 07:48 Total Bilirubin 0.7 mg/dl (0.2-1.0) D 04/11/17 07:48 AST 26 U/L (10-42) D 04/11/17 07:48 ALT 39 U/L (10-40) D 04/11/17 07:48 Alkaline Phosphatase 45 U/L (32-92) 04/11/17 07:48 Creatine Kinase 186 IU/L (39-308) 04/08/17 09:45 Creatine Kinase Index 2.9 % (0.0-5.0) 04/08/17 09:45 CK-MB (CK-2) 5.4 ng/mL (0.3-4.0) H 04/08/17 09:45 Troponin I 0.02 ng/ml (0.00-0.05) 04/09/17 00:00 C-Reactive Protein 17.9 MG/DL (0.00-0.3) H 04/09/17 13:20 B-Natriuretic Peptide 7407.36 pg/ml (5-125) H 04/08/17 09:45 Total Protein 5.4 g/dl (6.4-8.3) L 04/11/17 07:48 Albumin 2.8 g/dl (3.5-5.0) L 04/11/17 07:48 Active Medications Generic Name Dose Route Start Last Admin Trade Name Freq PRN Reason Stop Dose Admin Amlodipine Besylate 10 mg 04/08/17 22:00 04/10/17 21:41 Norvasc - PO 10 mg HS ROB Administration Cefepime HCl 2 gm 04/11/17 10:45 04/11/17 11:30 Maxipime 2gm Ivpb (Pre-Docked) IVPB 2 gm Q8H-IV ROB Administration Heparin Sodium (Porcine) 1,000 unit 04/09/17 22:00 Heparin - IVPUSH PRN PRN Heparin Heparin Sodium (Porcine) 5,000 unit 04/09/17 22:00 Heparin - IVPUSH PRN PRN Heparin Heparin Sodium/Dextrose 25,000 units in 500 mls @ 36 mls/hr 04/09/17 22:15 06:03 Heparin Infusion - IVPB 1,800 units/hr TITR ROB 36 mls/hr Protocol Administration 1,800 UNITS/HR Potassium Chloride/Sodium Chloride 20 meq in 1,000 mls @ 75 mls/hr 04/11/17 09 :30 04/11/17 10:19 Ns+20 Meq Kcl - IV 75 mls/hr ASDIR ROB Administration Vancomycin HCl 1,000 mg in 250 mls @ 166.667 mls/hr 04/11/17 11:00 04/11/17 12:20 Vancomycin (Pre-Docked) IVPB 166.667 mls/hr Q12H ROB Administration Labetalol HCl 300 mg 04/10/17 10:00 04/11/17 09:56 Normodyne - PO 300 mg BID ROB Administration Morphine Sulfate 4 mg 04/10/17 11:55 04/11/17 02:19 Morphine Sulfate IVPB 4 mg Q6H PRN Administration PAIN LEVEL 7 - 10 Potassium Phos/Sodium Phos 1 packet 04/10/17 12:00 04/11/17 09:56 Phos-Nak Packet - PO 1 packet BID ROB Administration Valsartan 320 mg 04/09/17 10:00 04/11/17 09:55 Diovan - PO 320 mg DAILY ROB Administration Microbiology 04/09/17 12:00 Urine - Urine Clean Catch Urine Culture - Final NO GROWTH OBTAINED 04/09/17 13:20 Blood - Peripheral Venous Blood Culture - Preliminary NO GROWTH OBTAINED AFTER 24 HOURS, INCUBATION TO CONTINUE FOR 4 DAYS. 04/09/17 13:20 Blood - Peripheral Venous Blood Culture - Preliminary NO GROWTH OBTAINED AFTER 24 HOURS, INCUBATION TO CONTINUE FOR 4 DAYS. ASSESSMENT/PLAN: Imaging 04/09/17 CT chest: bilateral pleural effusions and atelectasis 04/07/17 CTAP: 3.7cm left renal cortical structure (neoplastic versus complex cyst). Right sided intraparietal abdominal wall hernia. Laparoscopic gastric band. Sigmoid diverticulosis. Moderate umbilical hernia. Small left inguinal hernia; small bilateral pleural effusions; interstitial pulmonary congestion ASSESSMENT/PLAN 1) ID Sepsis of uncertain etiology Abdominal pain Hernias - low grade temp noted, wbc downtrending, blood and urine negative cultures negative to date, ct of abd/pelvis w/contrast 04/10 concerning for multiple embolic and pyleonepthritis, high suspicion for septic emboli, levaquin and flagyl ( 04/09-04/10) meropenenm (04/10), consulted with ID (Simone) advised vanc and cefepime - finding of ct scan abd/pelvis (04/10) discussed with Dr Santamaria, pending surgery for abd hernia repairs 2) cardiovascular Atrial fibrillation with RVR, newly diagnosed - continue labetolol for rate control; can titrate to 400mg BID if indicated - continue heparin can transition to eliquis 5mg bid postoperatively - echo (04/10) ef 45-50%, mild global left hypokinesis of left ventricle, concern for septic emboli, pending SHANNA - hold lovenox for possible surgical intervention; continue heparin drip - cardiology consulted and following systolic congestive Heart failure - elevated bnp, hold diuretics in setting of sepsis, continue daily weight and I /O CAD - cath 06/2006: mild LAD and PDA changes, normal LV function, pt is followed by Dr Caballero cardiology, [facility] Hypertension -continue amlodipine, valsartan, labetolol 3) nephrology JERMAINE - Cr 1.3, downtrending, likely, likely pre-renal, improved with gentle hydration. FEN Fluids: PO intake adequate Electrolytes: replete potassium, repeat bmp in AM Nutrition: low sodium DVT prophylaxis: heparin drip Dispo: continues to require inpatient care. Full code.
[2017-04-11 08:47] LABS: BASO % 0.1 % (0-2.0); HEMATOCRIT 36.9 % (35.4-49); HEMOGLOBIN 12.4 GM/dl (11.7-16.9); MCH 30.6 pg (25.7-33.7); MCHC 33.6 g/dl (32.0-35.9); MEAN CELL VOLUME 91.1 fl (80-96); MEAN PLT VOLUME 10.2 fl (7.5-11.1); MONO % 6.9 % (3.8-10.2); PLATELET COUNT 187 K/MM3 (134-434); RBC 4.05 M/mm3 (4.00-5.60); RDW 13.8 % (11.9-15.9); WHITE BLOOD COUNT 16.1 K/mm3 (4.0-10.8)
[2017-04-11] MEDS ORDERED: POTASSIUM CHLORIDE TABS 20 MEQ TABLET.ER (FP) PO ONE (09:00)
[2017-04-11] MEDS ORDERED: SODIUM CHLORIDE 0.9%/KCL 20 MEQ/1,000 ML INFUS.BAG IV SCH (09:30)
[2017-04-11] MEDS: VALSARTAN 160 MG TABLET (UD) PO SCH (09:55)
[2017-04-11] MEDS: LABETALOL HCL 100 MG TABLET (FP) PO SCH ×2 (09:56→22:07)
[2017-04-11] MEDS: NAPH,MB-DB/K PH,MBDB POWDER PACKET PO SCH ×2 (09:56→22:08)
[2017-04-11] MEDS ORDERED: ERTAPENEM SODIUM 1 GM/50 ML PRE-DOCKED IVPB SCH (10:00)
--- NOTE | 2017-04-11 10:25 | PN ---
Progress Note (short form) - Note Progress Note: ID Consult dictated Umbilical hernia New onset Afib, splenic and possible renal infarcts ? septic emboli Await cultures Will repeat BC x2. Check ESR,CRP Empiric vancomycin/ cefepime Discussed need for SHANNA with cardiology
[2017-04-11] MEDS ORDERED: CEFEPIME 2 GM/100 ML BAG PRE-DOCKED IVPB SCH (10:45)
[2017-04-11] MEDS ORDERED: CEFEPIME HCL 2 GM VIAL (RESTRICTED TO ID) IVPB SCH (10:45)
[2017-04-11] MEDS ORDERED: VANCOMYCIN 1 GRAM (PRE-DOCKED) 1,000 MG/250 ML BAG IVPB SCH (11:00)
--- NOTE | 2017-04-11 11:28 | CONS ---
INFECTIOUS DISEASE CONSULTATION DATE OF CONSULTATION: DATE OF DICTATION: 04/11/2017 REASON FOR CONSULTATION: The patient is a 71-year-old, morbidly obese male status post gastric band, evaluated for possible sepsis. HISTORY OF PRESENT ILLNESS: The patient is status post gastric band 7 years ago. He presented to the emergency room on April 07, 2017, with complaints of bilateral lower abdominal pain. Patient states he had consumed a meal of tacos prior to presentation. He developed severe pain involving the lower abdomen. Patient states that it involved both lower quadrants and had radiated to the scrotal area. He was medicated and discharged home. Patient returned to the emergency room on April 08, 2017, with worsening pain. He was found to be in new-onset atrial fibrillation with rapid ventricular response. Patient was admitted to the hospital. CAT scan of the abdomen and pelvis shows a right abdominal wall hernia and umbilical hernia. In addition, there was evidence of a splenic infarct and possible right renal infarcts versus pyelonephritis. His appendix was within normal limits. His course was complicated by temperature elevation and leukocytosis. He was empirically treated with antibiotics. Cultures are pending. At the present time, he is awake and alert. He is supine in bed. He is comfortable. He denies any recurrent abdominal pain. He denies any vomiting. He has not had a bowel movement since his admission. No urinary tract complaints. He denies any dysuria or hematuria. PAST MEDICAL HISTORY: Positive for morbid obesity, hypertension, coronary artery disease, umbilical hernia. PAST SURGICAL HISTORY: Status post cervical spine fusion, gastric band, bilateral total knee replacements. ALLERGIES: No known allergies. MEDICATIONS: Normodyne, felodipine, oxycodone. SOCIAL HISTORY: Lives at home with his significant other. Nonsmoker, nondrinker. SYSTEMS REVIEW: Neurologic: No loss of consciousness, seizure activity, focal weakness. Cardiac: As per HPI. Gastrointestinal: As per HPI. Genitourinary: Negative for urinary tract infection. LABORATORY DATA: White count 16.1; neutrophils 88, lymphocytes 5, monocytes 6; hematocrit 36.9; platelet count 189. BUN 17, creatinine 1.3. Urinalysis: Negative leukocytes. Blood and urine cultures pending. PHYSICAL EXAMINATION: General: He is awake and alert. He is in no acute distress. Vital Signs: Temperature 99.6, T-max 100.7; blood pressure 113/55; pulse 99, regular; respirations 18 per minute. HEENT: Sclerae are anicteric. Heart: Sounds irregular. S1, S2. No murmur. Lungs: Clear. Abdomen: Obese, soft. There is an umbilical hernia present. There is mild bilateral lower quadrant tenderness to palpation. No mass, rebound, or rigidity. Extremities: Edema 1+. IMPRESSION: 1. Umbilical hernia. 2. New-onset atrial fibrillation; splenic and possible renal infarcts, rule out septic emboli. 3. Morbid obesity status post gastric band. RECOMMENDATIONS: Await culture results, empiric antibiotic coverage with vancomycin and cefepime. We will review CAT scan with radiologist. Consideration of transesophageal echocardiogram in light of new-onset atrial fibrillation and possible embolic events. Thank you for the kind referral. CHERYL WELDON M.D. [id number]
--- NOTE | 2017-04-11 11:56 | PN ---
Progress Note, Physician History of Present Illness: Still in pain No CP Abd CT -. umbilical hernia, splenic infarcts, renal infarcts vs pyelo - Current Medication List Current Medications: Active Medications Amlodipine Besylate (Norvasc -) 10 mg PO HS [facility] Last Admin: 04/10/17 21:41 Dose: 10 mg Cefepime HCl (Maxipime 2gm Ivpb (Pre-Docked)) 2 gm IVPB Q8H-IV ROB Heparin Sodium (Porcine) (Heparin -) 1,000 unit IVPUSH PRN PRN PRN Reason: Heparin Heparin Sodium (Porcine) (Heparin -) 5,000 unit IVPUSH PRN PRN PRN Reason: Heparin Heparin Sodium/Dextrose (Heparin Infusion -) 25,000 units in 500 mls @ 36 mls/ hr IVPB TITR ROB; 1,800 UNITS/HR PRN Reason: Protocol Last Admin: 04/11/17 06:03 Dose: 1,800 units/hr, 36 mls/hr Potassium Chloride/Sodium Chloride (Ns+20 Meq Kcl -) 20 meq in 1,000 mls @ 75 mls/hr IV ASDIR [facility] Last Admin: 04/11/17 10:19 Dose: 75 mls/hr Vancomycin HCl (Vancomycin (Pre-Docked)) 1,000 mg in 250 mls @ 166.667 mls/hr IVPB Q12H [facility] Labetalol HCl (Normodyne -) 300 mg PO BID [facility] Last Admin: 04/11/17 09:56 Dose: 300 mg Morphine Sulfate (Morphine Sulfate) 4 mg IVPB Q6H PRN PRN Reason: PAIN LEVEL 7 - 10 Last Admin: 04/11/17 02:19 Dose: 4 mg Potassium Phos/Sodium Phos (Phos-Nak Packet -) 1 packet PO BID [facility] Last Admin: 04/11/17 09:56 Dose: 1 packet Valsartan (Diovan -) 320 mg PO DAILY [facility] Last Admin: 04/11/17 09:55 Dose: 320 mg - Objective Vital Signs: Vital Signs Temperature 99.1 F 04/11/17 11:20 Pulse Rate 92 H 04/11/17 11:20 Respiratory Rate 16 04/11/17 11:20 Blood Pressure 138/72 04/11/17 11:20 O2 Sat by Pulse Oximetry (%) 96 04/11/17 07:54 Constitutional: Yes: Other (in obvious discomfort) Eyes: Yes: Conjunctiva Clear HENT: Yes: Atraumatic Neck: Yes: Supple Cardiovascular: Yes: Pulse Irregular. No: Murmur Respiratory: Yes: CTA Bilaterally Gastrointestinal: Yes: Normal Bowel Sounds, Abdomen, Obese, Tenderness Edema: Yes Peripheral Pulses WNL: Yes Neurological: Yes: Alert, Oriented Psychiatric: Yes: Alert, Oriented Labs: CBC, BMP 04/11/17 07:48 04/11/17 07:48 INR, PTT INR 1.13 (0.82-1.09) 04/08/17 09:45 - ....Imaging Cat Scan: Report Reviewed Other: Other (tele -. afib) Assessment/Plan 71 yo male with HTN, mild CAD (per 2007 cath), obesity s/p lap band, who presented to ER with RLQ abdominal pain. Previously seen in ED last night with similar complaint of RLQ abdominal pain and was found to have R intraparietal hernia. He was admitted today with continued intermittent right lower abdominal pain and was found to be in new onset afib with HR 110s. BNP 7407. CXR negative for effusions or infiltrates. Despite elevated BNP, no complaints or CXR findings to suggest CHF. Currently rate controlled on labetalol 300 mg po bid -. was faster earlier when in pain [id number] score = 2 Echo with EF mildly reduced at 45-50% No CHF CT showed splenic infarcts, umbilical hernia, renal infarcts vs pyelo -. raising possibility of septic emboli (given the WBC) vs regular emboli from afib I agree pt should get SHANNA -. however, probed at [facility] is broken and I am trying to find out when it will be fixed If probe is not going to be available timely, pt may need to be transferred elsewhere (such as [place]), but will need to get accepted by surgery RECS: Continue his labetalol 300 mg po bid for afib rate control -.may titrate up prn Continue amlodipine and valsartan for BP control. 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 Jagjit Caballero ([facility]) in 1 week D/w Dr Simone Gilmore D/w pt and
--- NOTE | 2017-04-11 12:19 | HOSP ---
Physical Examination Vital Signs: Vital Signs Temperature 99.1 F 04/11/17 11:20 Pulse Rate 92 H 04/11/17 11:20 Respiratory Rate 16 04/11/17 11:20 Blood Pressure 138/72 04/11/17 11:20 O2 Sat by Pulse Oximetry (%) 96 04/11/17 07:54 Findings/Remarks: received call from Dr Barrientos to discuss patients CT results. concern for pyeloneohritis vs renal infarcts discussed as evidence on CT. also noted CT findings of splenic infarctions. Discussed changing antibiotics and recommendation for input from infectious disease. discussed case with Dr. Ortega who recommended Meropenem 1gm and that he would evaluate the patient for further antibiotics. case discussed with TAQUERIA Desouza who has discussed the case with cardiology Labs: CBC, BMP 04/11/17 07:48 04/11/17 07:48
[2017-04-11] MEDS: RANITIDINE HCL 150 MG TABLET (FP) PO SCH (14:10)
[2017-04-11] MEDS: POLYETHYLENE GLYCOL 3350 119 GM BTL PO SCH (14:10)
--- NOTE | 2017-04-11 15:44 | HOSP ---
Physical Examination Vital Signs: Vital Signs Temperature 98.9 F 04/11/17 13:45 Pulse Rate 91 H 04/11/17 13:45 Respiratory Rate 18 04/11/17 13:45 Blood Pressure 139/85 04/11/17 13:45 O2 Sat by Pulse Oximetry (%) 96 04/11/17 07:54 Constitutional: Yes: Calm Neck: Yes: Supple Cardiovascular: Yes: Pulse Irregular Respiratory: Yes: Diminished Gastrointestinal: Yes: Abdomen, Obese ...Rectal Exam: Yes: Deferred Labs: CBC, BMP 04/11/17 07:48 04/11/17 07:48 Hospitalist Encounter Assessment: GENERAL: The patient is awake, alert, and fully oriented, in no acute distress. HEAD: Normal with no signs of trauma. EYES: PERRL, extraocular movements intact, sclera anicteric, conjunctiva clear. No ptosis. ENT: Ears normal, nares patent, oropharynx clear without exudates, moist mucous membranes. NECK: Trachea midline, full range of motion, supple. LUNGS: Breath sounds equal, clear to auscultation bilaterally, no wheezes, no crackles, no accessory muscle use. HEART: irregular rate and rhythm ABDOMEN: Soft, obese, reducible umbilical hernia and right abdominal wall hernia with tenderness, constipated EXTREMITIES: no edema. NEUROLOGICAL: Cranial nerves II through XII grossly intact. Normal speech, gait not observed. PSYCH: Normal mood, normal affect. SKIN: Warm, dry, normal turgor, no rashes or lesions noted Patient is a 71 year old male with a significant past medical history of hypertension, CAD, obesity s/p gastric banding and umbilical hernia. He was transferred from [facility] to [facility]. Patient was admitted for systolic CHF, new onset of atrial fibrillation with RVR , right abdominal wall hernia, umbilical hernia, left inguinal hernia, and sepsis. Patient will be kept NPO overnight for possible SHANNA either at [facility] or another facility. ID: Sepsis Monitor labs, vitals Blood and urine cultures negative CT/Abd/Pelvis with concerns over multiple embolic and pylenophritis ID following, on Meropenem, Vanco, Cefepime Cardiology Atrial fibrillation with RVR, new onset Monitor on telemetry Rate control with Labetalol, titrate per response On Heparin drip Cardiology following, notes reviewed Systolic CHF Elevated BNP, daily weight, intake and output CAD On amlodopine, Valsartan, Labetelol Renal JERMAINE/Pylonephritis Creat trending down, renal consult Keep NPO for possible SHANNA tomorrow. F.E.N. Fluids: tolerating PO Electrolytes: monitor Nutrition: low sodium diet Prophy: Heparin drip Dispo: continues to require inpatient care. Full code.
[2017-04-11] MEDS: CEFEPIME 2 GM in DEXTROSE 5%-WATER - 100 ML IVPB SCH (17:55)
[2017-04-11] MEDS ORDERED: CEFEPIME HCL/D5W 2 GM/50 ML BAG IVPB SCH (18:00)
[2017-04-11 18:54] LABS: URINE APPEARANCE CLOUDY; URINE BILIRUBIN NEGATIVE (NEGATIVE); URINE BLOOD 3+ (NEGATIVE); URINE COLOR YELLOW; URINE GLUCOSE (UA) 1+ (NEGATIVE); URINE KETONE NEGATIVE (NEGATIVE); URINE LEUK ESTERASE NEGATIVE (NEGATIVE); URINE NITRITE NEGATIVE (NEGATIVE); URINE PROTEIN 2+ (NEGATIVE); URINE UROBILINOGEN NEGATIVE mg/dL (0.2-1.0)
[2017-04-11 19:01] LABS: EPI CELLS RARE /HPF (FEW); URINE BACTERIA MODERATE /hpf (NONE SEEN); URINE MUCUS FEW; YEAST RARE
[2017-04-11] MEDS: amLODIPine BESYLATE 10 MG TABLET (FP) PO SCH (22:08)
[2017-04-11] MEDS: DOCUSATE SODIUM 100 MG CAPSULE (FP) PO SCH (23:00)
[2017-04-11] MEDS: MORPHINE SULFATE 10 MG/1 ML *VIAL IVPUSH PRN (23:40)
[2017-04-12] MEDS: VANCOMYCIN 1,000 MG in DEXTROSE 5%-WATER - 250 ML IVPB SCH ×3 (01:32→23:15)
[2017-04-12] MEDS: HEPARIN INFUSION - 25,000 UNITS/500 ML INFUS.BAG IVPB SCH ×2 (01:34→17:00)
[2017-04-12] MEDS: CEFEPIME 2 GM in DEXTROSE 5%-WATER - 100 ML IVPB SCH ×3 (03:39→17:05)
[2017-04-12] MEDS: DOCUSATE SODIUM 100 MG CAPSULE (FP) PO SCH ×3 (05:48→21:17)
[2017-04-12 07:26] LABS: BASO % 0.3 % (0-2.0); EOS % 0.2 % (0-4.5); HEMATOCRIT 35.8 % (35.4-49); HEMOGLOBIN 11.5 GM/dL (11.7-16.9); LYMPH % 6.2 % (8-40); MCH 28.9 pg (25.7-33.7); MCHC 32.1 g/dl (32.0-35.9); MEAN PLT VOLUME 9.3 fl (7.5-11.1); MONO % 9.6 % (3.8-10.2); NEUT % 83.7 % (42.8-82.8); PLATELET COUNT 171 K/MM3 (134-434); RBC 3.97 M/mm3 (4.00-5.60); RDW 14.8 % (11.9-15.9); WHITE BLOOD COUNT 12.3 K/mm3 (4.0-10.0)
[2017-04-12 07:58] LABS: ALBUMIN 2.4 g/dl (3.4-5.0); BLOOD UREA NITROGEN 19 mg/dL (7-18); CHLORIDE 104 mmol/L (98-107); GLUCOSE,RANDOM 126 mg/dL (74-106); POTASSIUM 3.7 mmol/L (3.5-5.1); SGOT/AST 35 U/L (15-37); SODIUM 138 mmol/L (136-145)
[2017-04-12 08:18] LABS: ALK PHOS 49 U/L (45-117); ANION GAP 8 (8-16); BILIRUBIN,TOTAL 0.5 mg/dL (0.2-1.0); CALCIUM 7.5 mg/dL (8.5-10.1); CO2 26 mmol/L (21-32); CREATININE 1.3 mg/dL (0.7-1.3); MAGNESIUM 2.3 mg/dL (1.8-2.4); SGPT/ALT 39 U/L (12-78); TOT PROT 5.4 g/dl (6.4-8.2)
[2017-04-12] MEDS ORDERED: PT OWN MED DRAWER 7, Y5N ONE ×3 (09:05→17:02)
[2017-04-12] MEDS: LABETALOL HCL 100 MG TABLET (FP) PO SCH ×2 (09:07→21:17)
[2017-04-12] MEDS: VALSARTAN 160 MG TABLET (UD) PO SCH (09:07)
[2017-04-12] MEDS: RANITIDINE HCL 150 MG TABLET (FP) PO SCH (09:07)
[2017-04-12] MEDS: NAPH,MB-DB/K PH,MBDB POWDER PACKET PO SCH ×2 (09:10→21:17)
[2017-04-12] MEDS: POLYETHYLENE GLYCOL 3350 119 GM BTL PO SCH (09:45)
--- NOTE | 2017-04-12 10:19 | CONSULT ---
Consult Consult Specialty:: Nephrology Referred by:: TAQUERIA Fajardo Reason for Consultation:: JERMAINE Pyleonephritis renal infarcts - History of Present Illness Chief Complaint: Abdominal pain History of Present Illness: 71 year-old male with a PMH significant for HTN, CAD obesity s/p gastric banding , and umbilical hernia presented to the hospital on 04/07/2017 with complaints of abdominal pain and he had a CTAP which showed a right interparietal abdominal wall hernia and he was discharged after relief with pain medication. The next day the patient returned to the ED with the same complaint of lower abdominal pain but this time he also had shortness of breath. He was found be in new onset A. Fib. Patient had another CT scan with contrast and there was a concern for right sided pyelonephritis. There were also splenic infarcts and right renal infarct could not be ruled out. Patient had acute kidney injury and his creatinine went up to 1.5 and has trended down to 1.3. Nephrology consulted for renal abnormalities seen on CT scan. He currently denies nausea vomiting fevers chills chest pain or shortness of breath. he denies hematuria or dysuria. He states he drinks about 6-8 glasses of water per day. He denies any recent instrumentation or procedures on his vessels. - History Source History Provided By: Patient, Medical Record Limitations to Obtaining History: Other (pain and frustration) - Past Medical History Cardio/Vascular: Yes: CAD (mild per 2006 cardiac cath), HTN Musculoskeletal: Yes: Osteoarthritis Additional Medical History: Obesity - Past Surgical History Past Surgical History: Yes: Bariatric Surgery (Lap band), Joint Replacement ( Bilateral total knee replacement) Additional Surgical History: Right foot bunion removal, C6-7 disckectomy with fusion 05/16/16 - Alcohol/Substance Use Hx Alcohol Use: No History of Substance Use: reports: None - Smoking History Smoking history: Never smoked Have you smoked in the past 12 months: No Home Medications - Allergies Allergies/Adverse Reactions: Allergies Allergy/AdvReac Type Severity Reaction Status Date / Time No Known Allergies Allergy Verified 04/08/17 09:23 - Home Medications Home Medications: Ambulatory Orders Felodipine [Felodipine ER] 10 mg PO HS 04/07/17 Labetalol HCl [Normodyne -] 300 mg PO BID 04/07/17 Olmesartan Medoxomil 40 mg PO BID 04/07/17 Oxycodone HCl/Acetaminophen [Percocet 5-325 mg Tablet] 2 tab PO Q6H PRN #8 tablet MDD 8 TABS 04/08/17 Family Disease History - Family Disease History Family Disease History: Other: Father (non hodgkins lymphoma ), Sister ("blood cancer") Review of Systems - Review of Systems Constitutional: reports: Loss of Appetite Eyes: reports: No Symptoms HENT: reports: No Symptoms Neck: reports: No Symptoms Cardiovascular: reports: Shortness of Breath Respiratory: reports: SOB Gastrointestinal: reports: Abdominal Pain, Constipation Genitourinary: reports: No Symptoms Integumentary: reports: No Symptoms Neurological: reports: No Symptoms Hematology/Lymphatic: reports: No Symptoms Physical Exam Vital Signs: Vital Signs Temperature 98.6 F 04/12/17 05:49 Pulse Rate 90 04/12/17 05:49 Respiratory Rate 18 04/12/17 05:49 Blood Pressure 123/72 04/12/17 05:49 O2 Sat by Pulse Oximetry (%) 96 04/11/17 22:00 Constitutional: Yes: No Distress, Obese Eyes: Yes: Conjunctiva Clear HENT: Yes: Atraumatic Neck: Yes: Supple Cardiovascular: Yes: Pulse Irregular, S1, S2. No: Murmur Respiratory: Yes: Regular, CTA Bilaterally Gastrointestinal: Yes: Soft, Abdomen, Obese, Distention (slightly distended), Hernia (umbilical hernia with tenderness), Tenderness (RLQ, periumbilical, and LUQ.) Renal/: No: CVA Tenderness - Left, CVA Tenderness - Right, Quinones Present Extremities: Yes: WNL Edema: No Labs: CBC, BMP 04/12/17 06:26 04/12/17 06:26 Imaging - Results Chest X-ray: Report Reviewed, Image Reviewed Cat Scan: Report Reviewed, Image Reviewed MRI: Report Reviewed, Image Reviewed Assessment/Plan 71M PMH of HTN, CAD, and Obesity s/p gastric banding who presented to the hospital with abdominal pain found to have an umbilical hernia and new onset A. Fib. patient's creatinine increased to 1.5 and concern for multiple septic emboli causing splenic infarct and possibly renal infarct. Acute kidney injury: Creatinine now 1.3 hold valsartan continue to trend renal function avoid neprotoxins renally dose all meds as appropriate right kidney infarct: concern for septic emboli both CT scans reviewed with radiologist can not definitively say there is renal infarct without dedicated CTA will order CTA of abdomen- hold valsartan Vascular consult-Dr. Torres notified on hep gtt check lipid profile complement c3/c4 ordered LDH is high new onset Afib: continue anticoagulation per primary team and cardiology for SHANNA today abdominal pain secondary to hernia likely from hernia General surgery and vascular surgery on board will go for hernia repair pending cardiology clearance can not rule out mesenteric infarction without CTA HTN: Continue BP control with labetalol hold ARB Obesity: counselled on weight loss and lifestyle modifications Will follow Thank you for this consultative opportunity Case discussed with attending Dr. Muñoz and the [employer]ER who is thr primary provider for this patient.
[2017-04-12 12:19] LABS: LDH 886 U/L (87-241)
--- NOTE | 2017-04-12 12:50 | PN ---
Teaching Attending Note Name of Resident: Robin Albarado (Nephrology) ATTENDING PHYSICIAN STATEMENT I saw and evaluated the patient. I reviewed the resident's note and discussed the case with the resident. I agree with the resident's findings and plan as documented. SUBJECTIVE: This is a 71 year old gentleman with PMhx of Obesity s/p gastric banding, Hypertension, CAD, who presented with complaints of Abd pain and found to have a Abd hernia and noted to have a Cr of 1.[address] of the Abd that showed lack of profusion to his right Kidney. Pt also noted to have new onset Afib and started on Heparin gtt. Pt denies any flank pain or gross hematuria. No Hx of any recent intravascular procedures. No SOB, CP, Abd pain, Fever, chills. PMHx: as above Allergies: NKDA Family hx: NC Social Hx: No T/A/D ROS: as per HPI, all other pertinent ROS negative. Home Medications Medication Instructions Recorded Felodipine [Felodipine ER] 10 mg PO HS 04/07/17 Labetalol HCl [Normodyne -] 300 mg PO BID 04/07/17 Olmesartan Medoxomil 40 mg PO BID 04/07/17 Oxycodone HCl/Acetaminophen 2 tab PO Q6H PRN #8 tablet MDD 8 04/08/17 [Percocet 5-325 mg Tablet] TABS OBJECTIVE: Vital Signs Temperature 99.2 F 04/12/17 10:00 Pulse Rate 87 04/12/17 10:00 Respiratory Rate 20 04/12/17 10:00 Blood Pressure 125/74 04/12/17 10:00 O2 Sat by Pulse Oximetry (%) 92 L 04/12/17 09:00 Intake & Output 04/09/17 04/10/17 04/11/17 04/12/17 23:59 23:59 23:59 23:59 Intake Total 1425 1550 2407 1650 Output Total 500 500 Balance 1425 1550 1907 1150 Weight 124.341 kg NAD awake and alert RRR Dec BS at lung bases Obese, + tenderness no flank tenderness No LE edema, clubbing or cyanosis CBC, BMP 04/12/17 06:26 04/12/17 06:26 Laboratory Tests 04/11/17 04/12/17 18:00 06:26 Calcium 7.5 L LD Total 886 H Albumin 2.4 L Urine Protein 2+ H Urine Blood 3+ H Urine WBC (Auto) 55 Urine RBC (Auto) 300 Current Medications Amlodipine Besylate (Norvasc -) 10 mg PO HS [facility] Last Admin: 04/11/17 22:08 Dose: 10 mg Docusate Sodium (Colace -) 100 mg PO TID [facility] Last Admin: 04/12/17 05:48 Dose: Not Given Heparin Sodium (Porcine) (Heparin -) 1,000 unit IVPUSH PRN PRN PRN Reason: Heparin Last Admin: 04/12/17 08:24 Dose: 1,000 unit Heparin Sodium (Porcine) (Heparin -) 5,000 unit IVPUSH PRN PRN PRN Reason: Heparin Heparin Sodium/Dextrose (Heparin Infusion -) 25,000 units in 500 mls @ 36 mls/ hr IVPB TITR ROB; 1,800 UNITS/HR PRN Reason: Protocol Last Titration: 04/12/17 08:25 Dose: 1,900 units/hr, 38 mls/hr Cefepime HCl 2 gm/ Dextrose 100 mls @ 200 mls/hr IVPB Q8H-IV [facility] Last Admin: 04/12/17 09:07 Dose: 200 mls/hr Vancomycin HCl 1,000 mg/ (Dextrose) 250 mls @ 250 mls/hr IVPB BID@0000,1200 [facility] Last Admin: 04/12/17 11:33 Dose: 250 mls/hr Sodium Chloride (Normal Saline -) 1,000 mls @ 100 mls/hr IV ASDIR [facility] Labetalol HCl (Normodyne -) 300 mg PO BID [facility] Last Admin: 04/12/17 09:07 Dose: 300 mg Morphine Sulfate (Morphine Injection -) 4 mg IVPUSH Q6H PRN PRN Reason: PAIN LEVEL 7 - 10 Last Admin: 04/11/17 23:40 Dose: 4 mg Polyethylene Glycol (Miralax (For Daily Use) -) 17 gm PO DAILY [facility] Last Admin: 04/12/17 09:45 Dose: Not Given Potassium Phos/Sodium Phos (Phos-Nak Packet -) 1 packet PO BID [facility] Last Admin: 04/12/17 09:10 Dose: 1 packet Ranitidine HCl (Zantac -) 150 mg PO DAILY [facility] Last Admin: 04/12/17 09:07 Dose: 150 mg Valsartan (Diovan -) 320 mg PO DAILY [facility] Last Admin: 04/12/17 09:07 Dose: 320 mg ASSESSMENT AND PLAN: 71 year old gentleman with PMhx of Obesity s/p gastric banding, Hypertension, CAD, who presented with complaints of Abd pain and found to have a Abd hernia and noted to have a Cr of 1.[address] of the Abd that showed lack of profusion to his right Kidney. #Suspected Right Renal Infarction CT with Contrast of Abd showed non-enhancing right kidney Imaging reviewed with radiology Will need CTA of the Abd Vascular Surgery consulted LDH is elevated C3/C4 ordered, results pending check lipid profile on Heparin gtt currently for Afib Trend BUN/Cr will start IVF prior to CT scan #Compa/CKD Cr improved to 1.3 will hold ARB for now given suspected infarction Trend BUN/Cr avoid IV contrast and nephrotoxins #Abd pain/hernia ? ischemic bowel given other embolic events for CTA General surgery follow up #Hypertension hold diovan continue labetalol Thank you case discussed with resident, MINK RANCHER, Vascular surgery Elmer Muñoz DO
--- NOTE | 2017-04-12 14:11 | CONSULT ---
Consult Consult Specialty:: Vascular Surgery - History of Present Illness History of Present Illness: 71 year old man admitted with new onset Afib, lower abdominal pain and diarrhea who was found on CT scan to have splenic infarcts and hypoperfusion of the right kidney. His pain has persisted. No blood per rectum. PMhx of Obesity s/p gastric banding, Hypertension, CAD, recurrent ventral hernia. - History Source History Provided By: Patient, Medical Record - Past Medical History Cardio/Vascular: Yes: CAD (mild per 2006 cardiac cath), HTN Musculoskeletal: Yes: Osteoarthritis Additional Medical History: Obesity - Past Surgical History Past Surgical History: Yes: Bariatric Surgery (Lap band), Joint Replacement ( Bilateral total knee replacement) Additional Surgical History: Right foot bunion removal, C6-7 disckectomy with fusion 05/16/16 - Alcohol/Substance Use Hx Alcohol Use: No History of Substance Use: reports: None - Smoking History Smoking history: Never smoked Have you smoked in the past 12 months: No Home Medications - Allergies Allergies/Adverse Reactions: Allergies Allergy/AdvReac Type Severity Reaction Status Date / Time No Known Allergies Allergy Verified 04/08/17 09:23 - Home Medications Home Medications: Ambulatory Orders Felodipine [Felodipine ER] 10 mg PO HS 04/07/17 Labetalol HCl [Normodyne -] 300 mg PO BID 04/07/17 Olmesartan Medoxomil 40 mg PO BID 04/07/17 Oxycodone HCl/Acetaminophen [Percocet 5-325 mg Tablet] 2 tab PO Q6H PRN #8 tablet MDD 8 TABS 04/08/17 Family Disease History - Family Disease History Family Disease History: Other: Father (non hodgkins lymphoma ), Sister ("blood cancer") Physical Exam Vital Signs: Vital Signs Temperature 99.2 F 04/12/17 10:00 Pulse Rate 87 04/12/17 10:00 Respiratory Rate 20 04/12/17 10:00 Blood Pressure 125/74 04/12/17 10:00 O2 Sat by Pulse Oximetry (%) 92 L 04/12/17 09:00 Constitutional: Yes: No Distress Gastrointestinal: Yes: Soft, Tenderness (mild in lower abdomen) Labs: CBC, BMP 04/12/17 06:26 04/12/17 06:26 Imaging - Results Cat Scan: Image Reviewed Problem List - Problems (1) Renal infarction Assessment/Plan: CT images suggest subacute emboli to right kidney with low flow and segmental infarction. Left kidney appears normal. There is no role for intervention in this situation, hopefully there will be some improvement in flow as clot lyses. Code(s): N28.0 - ISCHEMIA AND INFARCTION OF KIDNEY (2) Splenic infarct Code(s): D73.5 - INFARCTION OF SPLEEN (3) Atrial fibrillation with RVR Assessment/Plan: Appears to have embolized to spleen and right kidney. Echocardiogram study pending to look for atrial thrombus. Concern of additional emboli to mesenteric vessels as cause of abdominal pain. CTA is pending. Code(s): I48.91 - UNSPECIFIED ATRIAL FIBRILLATION
--- NOTE | 2017-04-12 14:25 | PN ---
Progress Note, Physician History of Present Illness: Denies chest pain or dyspnea. Continues to report umbilical and lower abd pain. - Current Medication List Current Medications: Active Medications Amlodipine Besylate (Norvasc -) 10 mg PO HS [facility] Last Admin: 04/11/17 22:08 Dose: 10 mg Docusate Sodium (Colace -) 100 mg PO TID [facility] Last Admin: 04/12/17 05:48 Dose: Not Given Heparin Sodium (Porcine) (Heparin -) 1,000 unit IVPUSH PRN PRN PRN Reason: Heparin Last Admin: 04/12/17 08:24 Dose: 1,000 unit Heparin Sodium (Porcine) (Heparin -) 5,000 unit IVPUSH PRN PRN PRN Reason: Heparin Heparin Sodium/Dextrose (Heparin Infusion -) 25,000 units in 500 mls @ 36 mls/ hr IVPB TITR ROB; 1,800 UNITS/HR PRN Reason: Protocol Last Titration: 04/12/17 08:25 Dose: 1,900 units/hr, 38 mls/hr Cefepime HCl 2 gm/ Dextrose 100 mls @ 200 mls/hr IVPB Q8H-IV [facility] Last Admin: 04/12/17 09:07 Dose: 200 mls/hr Vancomycin HCl 1,000 mg/ (Dextrose) 250 mls @ 250 mls/hr IVPB BID@0000,1200 [facility] Last Admin: 04/12/17 11:33 Dose: 250 mls/hr Sodium Chloride (Normal Saline -) 1,000 mls @ 100 mls/hr IV ASDIR [facility] Labetalol HCl (Normodyne -) 300 mg PO BID [facility] Last Admin: 04/12/17 09:07 Dose: 300 mg Morphine Sulfate (Morphine Injection -) 4 mg IVPUSH Q6H PRN PRN Reason: PAIN LEVEL 7 - 10 Last Admin: 04/11/17 23:40 Dose: 4 mg Polyethylene Glycol (Miralax (For Daily Use) -) 17 gm PO DAILY [facility] Last Admin: 04/12/17 09:45 Dose: Not Given Potassium Phos/Sodium Phos (Phos-Nak Packet -) 1 packet PO BID [facility] Last Admin: 04/12/17 09:10 Dose: 1 packet Ranitidine HCl (Zantac -) 150 mg PO DAILY [facility] Last Admin: 04/12/17 09:07 Dose: 150 mg - Objective Vital Signs: Vital Signs Temperature 99.2 F 04/12/17 10:00 Pulse Rate 87 04/12/17 10:00 Respiratory Rate 20 04/12/17 10:00 Blood Pressure 125/74 04/12/17 10:00 O2 Sat by Pulse Oximetry (%) 92 L 04/12/17 09:00 Constitutional: Yes: Well Nourished, No Distress, Obese Eyes: Yes: Conjunctiva Clear, EOM Intact HENT: Yes: Atraumatic, Normocephalic Cardiovascular: Yes: Pulse Irregular. No: JVD, Murmur Respiratory: Yes: CTA Bilaterally Gastrointestinal: Yes: Normal Bowel Sounds, Soft Edema: No Neurological: Yes: Alert, Oriented, Cran Nerves II-XII Intact Psychiatric: Yes: WNL Labs: CBC, BMP 04/12/17 06:26 04/12/17 06:26 INR, PTT INR 1.13 (0.82-1.09) 04/08/17 09:45 Assessment/Plan 71 yo male with HTN, mild CAD (per 2007 cath), obesity s/p lap band, who presented to ER with RLQ abdominal pain. Previously seen in ED last night with similar complaint of RLQ abdominal pain and was found to have R intraparietal hernia. He was admitted today with continued intermittent right lower abdominal pain and was found to be in new onset afib with HR 110s. BNP 7407. CXR negative for effusions or infiltrates. Despite elevated BNP, no complaints or CXR findings to suggest CHF. Currently rate controlled on labetalol 300 mg po bid -. was faster earlier when in pain [id number] score = 2 Echo on 04/10/17 demonstrated mildly reduced LVEF 45-50%. No CHF clinically. CT scan of abd on 04/10/17 showed splenic infarcts, umbilical hernia, renal infarcts vs pyelonephritis -> raising possibility of septic emboli (given the WBC, but blood culture negative to date) vs regular emboli from atrial fibrillation. CTA of abdomen performed earlier today. Final report pending. Scheduling of SHANNA is currently pending. RECS: Continue labetalol 300 mg po bid for afib rate control. Uptitrate as needed. Continue amlodipine and valsartan for BP control. Contue IV heparin for now. Patient will eventually need to be restarted on Eliquis 5 bid after surgery or prior to discharge. Still in process of trying to schedule SHANNA here at [facility]. Patient to follow-up with his detention officer Dr. Jagjit Caballero ([facility]) upon discharge in future.
--- NOTE | 2017-04-12 15:06 | PN ---
Physical Exam: SUBJECTIVE: Patient seen and examined at bedside. present. OBJECTIVE: Vital Signs Period Temp Pulse Resp BP Sys/Garibay Pulse Ox Last 24 Hr 98.4 F-99.6 F 87-93 18-20 116-132/72-81 92-96 GENERAL: Awake, alert, and fully oriented, in no acute distress. LUNGS: Breath sounds equal, clear to auscultation bilaterally. No wheezes, and no crackles. No accessory muscle use. HEART: Irregular S1 and S2 ABDOMEN: Soft, not distended. Mild RLQ and RUQ tenderness. Umbilical hernia. Testicular and scrotal exam unremarkable. There are no areas of erythema. MUSCULOSKELETAL: Normal range of motion at all joints. No bony deformities or tenderness. No CVA tenderness. UPPER EXTREMITIES: 2+ pulses, warm, well-perfused. No cyanosis. No clubbing. No peripheral edema. LOWER EXTREMITIES: 2+ pulses, warm, well-perfused. No calf tenderness. No peripheral edema. NEUROLOGICAL: Cranial nerves II-XII intact. Normal speech. Laboratory Results - last 24 hr 04/11/17 04/12/17 04/12/17 18:00 06:26 06:26 WBC RBC Hgb Hct MCV MCH MCHC RDW Plt Count MPV Neutrophils % Lymphocytes % Monocytes % Eosinophils % Basophils % ESR PTT (Actin FS) 47.3 H D Sodium 138 Potassium 3.7 Chloride 104 Carbon Dioxide 26 Anion Gap 8 BUN 19 H Creatinine 1.3 Creat Clearance w eGFR 54.57 Random Glucose 126 H Calcium 7.5 L Magnesium 2.3 Total Bilirubin 0.5 D AST 35 D ALT 39 D Alkaline Phosphatase 49 LD Total 886 H C-Reactive Protein 25.6 H Total Protein 5.4 L Albumin 2.4 L Urine Color Yellow Urine Appearance Cloudy Urine pH 5.0 Ur Specific [place] 1.025 Urine Protein 2+ H Urine Glucose (UA) 1+ H Urine Ketones Negative Urine Blood 3+ H Urine Nitrite Negative Urine Bilirubin Negative Urine Urobilinogen Negative Ur Leukocyte Esterase Negative Urine WBC (Auto) 55 Urine RBC (Auto) 300 Ur Epithelial Cells Rare Urine Bacteria Moderate Urine Mucus Few Urine Yeast Rare 04/12/17 04/12/17 06:26 06:26 WBC 12.3 H RBC 3.97 L Hgb 11.5 L Hct 35.8 MCV 90.0 MCH 28.9 MCHC 32.1 RDW 14.8 Plt Count 171 MPV 9.3 Neutrophils % 83.7 H Lymphocytes % 6.2 L Monocytes % 9.6 Eosinophils % 0.2 Basophils % 0.3 ESR 46 H PTT (Actin FS) Sodium Potassium Chloride Carbon Dioxide Anion Gap BUN Creatinine Creat Clearance w eGFR Random Glucose Calcium Magnesium Total Bilirubin AST ALT Alkaline Phosphatase LD Total C-Reactive Protein Total Protein Albumin Urine Color Urine Appearance Urine pH Ur Specific [place] Urine Protein Urine Glucose (UA) Urine Ketones Urine Blood Urine Nitrite Urine Bilirubin Urine Urobilinogen Ur Leukocyte Esterase Urine WBC (Auto) Urine RBC (Auto) Ur Epithelial Cells Urine Bacteria Urine Mucus Urine Yeast Active Medications Generic Name Dose Route Start Last Admin Trade Name Freq PRN Reason Stop Dose Admin Amlodipine Besylate 10 mg 04/08/17 22:00 04/11/17 22:08 Norvasc - PO 10 mg HS ROB Administration Docusate Sodium 100 mg 04/11/17 22:00 04/12/17 05:48 Colace - PO Not Given TID ROB Heparin Sodium (Porcine) 1,000 unit 04/09/17 22:00 04/12/17 08:24 Heparin - IVPUSH 1,000 unit PRN PRN Administration Heparin Heparin Sodium (Porcine) 5,000 unit 04/09/17 22:00 Heparin - IVPUSH PRN PRN Heparin Heparin Sodium/Dextrose 25,000 units in 500 mls @ 36 mls/hr 04/09/17 22:15 08:25 Heparin Infusion - IVPB 1,900 units/hr TITR ROB 38 mls/hr Protocol Titration 1,800 UNITS/HR Cefepime HCl 2 gm/ Dextrose 100 mls @ 200 mls/hr 04/11/17 18:00 04/12/17 09: 07 IVPB 200 mls/hr Q8H-IV [facility] Administration Vancomycin HCl 1,000 mg/ 250 mls @ 250 mls/hr 04/12/17 01:15 04/12/17 11:33 Dextrose IVPB 250 mls/hr BID@0000,1200 ROB Administration Sodium Chloride 1,000 mls @ 100 mls/hr 04/12/17 12:15 Normal Saline - IV ASDIR [facility] Labetalol HCl 300 mg 04/10/17 10:00 04/12/17 09:07 Normodyne - PO 300 mg BID ROB Administration Morphine Sulfate 4 mg 04/11/17 13:59 04/11/17 23:40 Morphine Injection - IVPUSH 4 mg Q6H PRN Administration PAIN LEVEL 7 - 10 Polyethylene Glycol 17 gm 04/11/17 13:45 04/12/17 09:45 Miralax (For Daily Use) - PO Not Given DAILY [facility] Potassium Phos/Sodium Phos 1 packet 04/10/17 12:00 04/12/17 09:10 Phos-Nak Packet - PO 1 packet BID [facility] Administration Ranitidine HCl 150 mg 04/11/17 13:30 04/12/17 09:07 Zantac - PO 150 mg DAILY [facility] Administration Imaging 04/12/17 CTA: marked decrease perfusion to right kidney, filling defects within right renal artery suspicious for thrombus; area of hypodensity withn midportion of spleen suspicious for an infarct 04/10/17 CTAP w/contrast: trace layering pleural effusions slightly increased; moderate-sized infarct in superior spleen; diminished enhancement throughout nearly the entire right kidney; moderate-size umbilical hernia; right interparietal hernia 04/09/17 CT chest: bilateral pleural effusions and atelectasis 04/07/17 CTAP: 3.7cm left renal cortical structure (neoplastic versus complex cyst). Right sided intraparietal abdominal wall hernia. Laparoscopic gastric band. Sigmoid diverticulosis. Moderate umbilical hernia. Small left inguinal hernia; small bilateral pleural effusions; interstitial pulmonary congestion ASSESSMENT/PLAN 71 year-old male with a PMH significant for HTN, CAD obesity s/p gastric banding , and umbilical hernia. Admitted for newly diagnosed atrial fibrillation with RVR. Hospital course complicated by splenic and renal infarcts, the result of thrombi secondary to afib v. endocarditis. Atrial fibrillation with RVR, newly diagnosed --rate well-controlled, contnue labetolol --continue heparin drip --cardiology following Right renal infarction --marked decrease perfusion likely due to thrombus v. septic emboli --Dr. Torres: no role for vascular surgical intervention --continue IV fluids after contrast imaging Splenic infarction r/o endocarditis --afebrile since 04/09; WBC peak 19.4k on 04/10, trending down --two sets of blood and urine cultures NGTD --continue cefepime (day #2), vanc (day #1) --for SHANNA tomorrow Abdominal pain Hernias r/o ischemic bowel --CTA imaging unrevealing of other areas of ischemia --Dr. Zazueta to follow up re: repair of hernias when more stable Systolic and diastolic heart failure --04/10/17 Echo: LV function mildly reduced, EF 45-50%, likely diastolic dysfunction, mild global hypokinesis; RV normal; mild to moderate MR; mild TR --clinical signs of HF: BNP 7400, small bilateral pleural effusions JERMAINE/CKD --peak Cr 1.6-->1.3 --FeNa 0.6% --continue IV fluids Coronary artery disease --continue amlodipine, labetolol; not on regular ASA or statin Hypertension --continue amlodipine, valsartan, labetolol FEN Fluids: PO intake adequate Electrolytes: replete as indicated Nutrition: low sodium DVT prophylaxis: heparin drip Dispo: continues to require inpatient care. Full code. Visit type - Emergency Visit Emergency Visit: Yes ED Registration Date: 04/08/17 Care time: The patient presented to the Emergency Department on the above date and was hospitalized for further evaluation of their emergent condition. - New Patient This patient is new to me today: No - Critical Care Critical Care patient: No
[2017-04-12] MEDS: SODIUM CHLORIDE 1,000 ML IV SCH (16:00)
[2017-04-12] MEDS: amLODIPine BESYLATE 10 MG TABLET (FP) PO SCH (21:17)
[2017-04-12] MEDS: MORPHINE SULFATE 10 MG/1 ML *VIAL IVPUSH PRN (23:13)
[2017-04-13] MEDS: DOCUSATE SODIUM 100 MG CAPSULE (FP) PO SCH ×4 (00:35→21:54)
[2017-04-13] MEDS: CEFEPIME 2 GM in DEXTROSE 5%-WATER - 100 ML IVPB SCH ×2 (02:30→09:10)
[2017-04-13 07:59] LABS: BASO % 0.4 % (0-2.0); EOS % 1.6 % (0-4.5); HEMATOCRIT 36.2 % (35.4-49); HEMOGLOBIN 11.7 GM/dL (11.7-16.9); LYMPH % 11.2 % (8-40); MCH 29.3 pg (25.7-33.7); MCHC 32.3 g/dl (32.0-35.9); MEAN CELL VOLUME 90.6 fl (80-96); MONO % 11.3 % (3.8-10.2); NEUT % 75.5 % (42.8-82.8); PLATELET COUNT 173 K/MM3 (134-434); RDW 14.8 % (11.9-15.9); WHITE BLOOD COUNT 9.8 K/mm3 (4.0-10.0)
[2017-04-13 08:20] LABS: INR 1.27 (0.82-1.09); PROTHROMBIN TIME (PATIENT) 14.4 SEC (9.98-11.88)
--- NOTE | 2017-04-13 08:27 | PN ---
Physical Exam: SUBJECTIVE: Patient seen and examined OBJECTIVE: Vital Signs Period Temp Pulse Resp BP Sys/Garibay Pulse Ox Last 24 Hr 97.5 F-99.2 F 74-91 18-20 119-139/62-88 92-93 GENERAL: Awake, alert, and fully oriented, in no acute distress. LUNGS: Breath sounds equal, clear to auscultation bilaterally. No wheezes, and no crackles. No accessory muscle use. HEART: Irregular S1 and S2 ABDOMEN: Soft, not distended. Mild RLQ and RUQ tenderness. Umbilical hernia. Testicular and scrotal exam unremarkable. There are no areas of erythema. MUSCULOSKELETAL: Normal range of motion at all joints. No bony deformities or tenderness. No CVA tenderness. UPPER EXTREMITIES: 2+ pulses, warm, well-perfused. No cyanosis. No clubbing. No peripheral edema. LOWER EXTREMITIES: 2+ pulses, warm, well-perfused. No calf tenderness. No peripheral edema. NEUROLOGICAL: Cranial nerves II-XII intact. Normal speech. Laboratory Results - last 24 hr 04/12/17 04/12/17 04/12/17 06:26 06:26 15:25 ESR 46 H PTT (Actin FS) 62.3 H D Sodium 138 Potassium 3.7 Chloride 104 Carbon Dioxide 26 Anion Gap 8 BUN 19 H Creatinine 1.3 Creat Clearance w eGFR 54.57 Random Glucose 126 H Calcium 7.5 L Magnesium 2.3 Total Bilirubin 0.5 D AST 35 D ALT 39 D Alkaline Phosphatase 49 LD Total 886 H C-Reactive Protein 25.6 H Total Protein 5.4 L Albumin 2.4 L Active Medications Generic Name Dose Route Start Last Admin Trade Name Fitoq PRN Reason Stop Dose Admin Amlodipine Besylate 10 mg 04/08/17 22:00 04/12/17 21:17 Norvasc - PO 10 mg HS ROB Administration Docusate Sodium 100 mg 04/11/17 22:00 04/13/17 05:52 Colace - PO Not Given TID ROB Heparin Sodium (Porcine) 1,000 unit 04/09/17 22:00 04/12/17 08:24 Heparin - IVPUSH 1,000 unit PRN PRN Administration Heparin Heparin Sodium (Porcine) 5,000 unit 04/09/17 22:00 Heparin - IVPUSH PRN PRN Heparin Heparin Sodium/Dextrose 25,000 units in 500 mls @ 36 mls/hr 04/09/17 22:15 05:52 Heparin Infusion - IVPB 1,900 units/hr TITR ROB 38 mls/hr Protocol Titration 1,800 UNITS/HR Cefepime HCl 2 gm/ Dextrose 100 mls @ 200 mls/hr 04/11/17 18:00 04/13/17 02: 30 IVPB 200 mls/hr Q8H-IV ROB Administration Vancomycin HCl 1,000 mg/ 250 mls @ 250 mls/hr 04/12/17 01:15 04/12/17 23:15 Dextrose IVPB 250 mls/hr BID@0000,1200 ROB Administration Sodium Chloride 1,000 mls @ 100 mls/hr 04/12/17 12:15 04/12/17 16:00 Normal Saline - IV 100 mls/hr ASDIR ROB Administration Labetalol HCl 300 mg 04/10/17 10:00 04/12/17 21:17 Normodyne - PO 300 mg BID ROB Administration Morphine Sulfate 4 mg 04/11/17 13:59 04/12/17 23:13 Morphine Injection - IVPUSH 4 mg Q6H PRN Administration PAIN LEVEL 7 - 10 Polyethylene Glycol 17 gm 04/11/17 13:45 04/12/17 09:45 Miralax (For Daily Use) - PO Not Given DAILY ROB Potassium Phos/Sodium Phos 1 packet 04/10/17 12:00 04/12/17 21:17 Phos-Nak Packet - PO 1 packet BID ROB Administration Ranitidine HCl 150 mg 04/11/17 13:30 04/12/17 09:07 Zantac - PO 150 mg DAILY ROB Administration Imaging 04/12/17 CTA: marked decrease perfusion to right kidney, filling defects within right renal artery suspicious for thrombus; area of hypodensity withn midportion of spleen suspicious for an infarct 04/10/17 CTAP w/contrast: trace layering pleural effusions slightly increased; moderate-sized infarct in superior spleen; diminished enhancement throughout nearly the entire right kidney; moderate-size umbilical hernia; right interparietal hernia 04/09/17 CT chest: bilateral pleural effusions and atelectasis 04/07/17 CTAP: 3.7cm left renal cortical structure (neoplastic versus complex cyst). Right sided intraparietal abdominal wall hernia. Laparoscopic gastric band. Sigmoid diverticulosis. Moderate umbilical hernia. Small left inguinal hernia; small bilateral pleural effusions; interstitial pulmonary congestion ASSESSMENT/PLAN 71 year-old male with a PMH significant for HTN, CAD obesity s/p gastric banding , and umbilical hernia. Admitted for newly diagnosed atrial fibrillation with RVR. Hospital course complicated by splenic and renal infarcts, the result of thrombi secondary to afib. Atrial fibrillation with RVR, newly diagnosed --rate well-controlled, contnue labetolol --04/13 SHANNA: no left atrial or left atrial appendage thrombus; evidence of spontaneous echo contrast in the left atrium and left atrial appendage; left atrial appendate velocity is reduced; no PFO; mild to moderate MR; mild TR; trace AI --continue heparin drip --cardiology following Right renal infarction --marked decrease perfusion likely due to thrombus --Dr. Torres: no role for vascular surgical intervention --continue IV fluids after contrast imaging Splenic infarction r/o endocarditis --afebrile since 04/09; WBC peak 19.4k on 04/10, today wnl --two sets of blood and urine cultures NGTD --04/13 SHANNA: no vegetation seen on valves --will stop antibiotics Abdominal pain Hernias r/o ischemic bowel --CTA imaging unrevealing of other areas of ischemia --Dr. Zazueta to follow up re: repair of hernias when more stable Systolic and diastolic heart failure --04/10/17 Echo: LV function mildly reduced, EF 45-50%, likely diastolic dysfunction, mild global hypokinesis; RV normal; mild to moderate MR; mild TR --clinical signs of HF: BNP 7400, small bilateral pleural effusions JERMAINE/CKD --peak Cr 1.6-->1.3-->1.4 --continue IV fluids Coronary artery disease --continue amlodipine, labetolol; not on regular ASA or statin Hypertension --continue amlodipine, valsartan, labetolol FEN Fluids: NS @ 100mL/hr Electrolytes: replete as indicated Nutrition: low sodium DVT prophylaxis: heparin drip Dispo: continues to require inpatient care. Full code.
[2017-04-13 08:43] LABS: ALBUMIN 2.4 g/dl (3.4-5.0); ANION GAP 8 (8-16); BILIRUBIN,TOTAL 0.6 mg/dL (0.2-1.0); BLOOD UREA NITROGEN 16 mg/dL (7-18); CALCIUM 7.3 mg/dL (8.5-10.1); CHLORIDE 105 mmol/L (98-107); CO2 28 mmol/L (21-32); CREATININE 1.4 mg/dL (0.7-1.3); GLUCOSE,RANDOM 102 mg/dL (74-106); MAGNESIUM 2.2 mg/dL (1.8-2.4); PHOSPHOROUS 2.7 mg/dL (2.5-4.9); POTASSIUM 3.2 mmol/L (3.5-5.1); SGOT/AST 34 U/L (15-37); SGPT/ALT 43 U/L (12-78); SODIUM 141 mmol/L (136-145); TOT PROT 5.4 g/dl (6.4-8.2)
[2017-04-13 08:44] LABS: ALK PHOS 53 U/L (45-117)
--- NOTE | 2017-04-13 08:48 | PN ---
Progress Note (short form) - Note Progress Note: VSS Abd full, soft. Umbilical hernia not reducible, not tender or red. CTA shows no evidence for mesenteric arterial emboli. Right renal and splenic infarcts unchanged. Imp: S/p emboli to right kidney and spleen associated with new onset Afib. No new embolic events. Patient now anticoagulated Abdominal pain from umbilical hernia improved. Rec: Continue anticoagulation, switch to PO Eliquis. There is no role for thrombolysis for an embolic event that occurred several days ago. Problem List - Problems (1) Renal infarction Code(s): N28.0 - ISCHEMIA AND INFARCTION OF KIDNEY (2) Splenic infarct Code(s): D73.5 - INFARCTION OF SPLEEN (3) Atrial fibrillation with RVR Code(s): I48.91 - UNSPECIFIED ATRIAL FIBRILLATION
[2017-04-13] MEDS ORDERED: PT OWN MED DRAWER 7, Y5N ONE ×2 (09:02→13:53)
[2017-04-13] MEDS: NAPH,MB-DB/K PH,MBDB POWDER PACKET PO SCH ×2 (09:10→21:54)
[2017-04-13] MEDS: POLYETHYLENE GLYCOL 3350 119 GM BTL PO SCH (09:10)
[2017-04-13] MEDS: LABETALOL HCL 100 MG TABLET (FP) PO SCH ×2 (09:10→21:54)
[2017-04-13] MEDS: RANITIDINE HCL 150 MG TABLET (FP) PO SCH (09:10)
--- NOTE | 2017-04-13 09:14 | PN ---
Progress Note, Physician History of Present Illness: Awake, alert. C/O periumbilical pain No N/V. + Loose BM No fever/ chills WBC improved - WNL Blood c/s negative - Current Medication List Current Medications: Active Medications Amlodipine Besylate (Norvasc -) 10 mg PO HS [facility] Last Admin: 04/12/17 21:17 Dose: 10 mg Docusate Sodium (Colace -) 100 mg PO TID [facility] Last Admin: 04/13/17 05:52 Dose: Not Given Heparin Sodium (Porcine) (Heparin -) 1,000 unit IVPUSH PRN PRN PRN Reason: Heparin Last Admin: 04/12/17 08:24 Dose: 1,000 unit Heparin Sodium (Porcine) (Heparin -) 5,000 unit IVPUSH PRN PRN PRN Reason: Heparin Heparin Sodium/Dextrose (Heparin Infusion -) 25,000 units in 500 mls @ 36 mls/ hr IVPB TITR ROB; 1,800 UNITS/HR PRN Reason: Protocol Last Titration: 04/13/17 05:52 Dose: 1,900 units/hr, 38 mls/hr Cefepime HCl 2 gm/ Dextrose 100 mls @ 200 mls/hr IVPB Q8H-IV ROB Last Admin: 04/13/17 02:30 Dose: 200 mls/hr Vancomycin HCl 1,000 mg/ (Dextrose) 250 mls @ 250 mls/hr IVPB BID@0000,1200 [facility] Last Admin: 04/12/17 23:15 Dose: 250 mls/hr Sodium Chloride (Normal Saline -) 1,000 mls @ 100 mls/hr IV ASDIR [facility] Last Admin: 04/12/17 16:00 Dose: 100 mls/hr Labetalol HCl (Normodyne -) 300 mg PO BID [facility] Last Admin: 04/12/17 21:17 Dose: 300 mg Morphine Sulfate (Morphine Injection -) 4 mg IVPUSH Q6H PRN PRN Reason: PAIN LEVEL 7 - 10 Last Admin: 04/12/17 23:13 Dose: 4 mg Polyethylene Glycol (Miralax (For Daily Use) -) 17 gm PO DAILY [facility] Last Admin: 04/12/17 09:45 Dose: Not Given Potassium Phos/Sodium Phos (Phos-Nak Packet -) 1 packet PO BID [facility] Last Admin: 04/12/17 21:17 Dose: 1 packet Ranitidine HCl (Zantac -) 150 mg PO DAILY ROB Last Admin: 04/12/17 09:07 Dose: 150 mg - Objective Vital Signs: Vital Signs Temperature 98.2 F 04/13/17 06:00 Pulse Rate 91 H 04/13/17 06:00 Respiratory Rate 20 04/13/17 06:00 Blood Pressure 119/62 04/13/17 06:00 O2 Sat by Pulse Oximetry (%) 93 L 04/12/17 21:00 Constitutional: Yes: No Distress Eyes: Yes: Conjunctiva Clear Cardiovascular: Yes: S1, S2 Respiratory: Yes: CTA Bilaterally Gastrointestinal: Yes: Normal Bowel Sounds, Soft, Abdomen, Obese, Other (+ umbilical hernia). No: Tenderness Edema: Yes Edema: LLE: 1+, RLE: 1+ Labs: CBC, BMP 04/13/17 07:05 04/13/17 07:05 INR, PTT INR 1.27 (0.82-1.09) H 04/13/17 07:05 Assessment/Plan Fever/ leukocytosis- improved New onset Afib, splenic/renal infarcts R/O emboli Blood c/s no growth For SHANNA this am Continue empiric vancomycin/ cefepime
[2017-04-13] MEDS ORDERED: POTASSIUM CHLORIDE TABS 20 MEQ TABLET.ER (FP) PO ONE ×2 (10:03→14:00)
--- NOTE | 2017-04-13 10:06 | PN ---
Progress Note, Physician History of Present Illness: patient seen and examined at bedside for SHANNA today at 11AM frustrated about his clinical condition at bedside - Current Medication List Current Medications: Active Medications Amlodipine Besylate (Norvasc -) 10 mg PO HS [facility] Last Admin: 04/12/17 21:17 Dose: 10 mg Docusate Sodium (Colace -) 100 mg PO TID [facility] Last Admin: 04/13/17 05:52 Dose: Not Given Heparin Sodium (Porcine) (Heparin -) 1,000 unit IVPUSH PRN PRN PRN Reason: Heparin Last Admin: 04/12/17 08:24 Dose: 1,000 unit Heparin Sodium (Porcine) (Heparin -) 5,000 unit IVPUSH PRN PRN PRN Reason: Heparin Heparin Sodium/Dextrose (Heparin Infusion -) 25,000 units in 500 mls @ 36 mls/ hr IVPB TITR ROB; 1,800 UNITS/HR PRN Reason: Protocol Last Titration: 04/13/17 05:52 Dose: 1,900 units/hr, 38 mls/hr Vancomycin HCl 1,000 mg/ (Dextrose) 250 mls @ 250 mls/hr IVPB BID@0000,1200 [facility] Last Admin: 04/12/17 23:15 Dose: 250 mls/hr Sodium Chloride (Normal Saline -) 1,000 mls @ 100 mls/hr IV ASDIR [facility] Last Admin: 04/12/17 16:00 Dose: 100 mls/hr Labetalol HCl (Normodyne -) 300 mg PO BID [facility] Last Admin: 04/13/17 09:10 Dose: 300 mg Morphine Sulfate (Morphine Injection -) 4 mg IVPUSH Q6H PRN PRN Reason: PAIN LEVEL 7 - 10 Last Admin: 04/12/17 23:13 Dose: 4 mg Polyethylene Glycol (Miralax (For Daily Use) -) 17 gm PO DAILY [facility] Last Admin: 04/13/17 09:10 Dose: Not Given Potassium Chloride (K-Dur -) 40 meq PO ONCE ONE Stop: 04/13/17 10:04 Potassium Phos/Sodium Phos (Phos-Nak Packet -) 1 packet PO BID [facility] Last Admin: 04/13/17 09:10 Dose: 1 packet Ranitidine HCl (Zantac -) 150 mg PO DAILY [facility] Last Admin: 04/13/17 09:10 Dose: 150 mg - Objective Vital Signs: Vital Signs Temperature 98.2 F 04/13/17 06:00 Pulse Rate 91 H 04/13/17 06:00 Respiratory Rate 20 04/13/17 06:00 Blood Pressure 119/62 04/13/17 06:00 O2 Sat by Pulse Oximetry (%) 93 L 04/12/17 21:00 Constitutional: Yes: No Distress Eyes: Yes: Conjunctiva Clear HENT: Yes: Atraumatic Neck: Yes: Supple Cardiovascular: Yes: Pulse Irregular, S1, S2 Respiratory: Yes: CTA Bilaterally Gastrointestinal: Yes: Soft, Tenderness (umbilical and LUQ tenderness) Genitourinary: Yes: CVA Tenderness - Right (minor) Edema: No Neurological: Yes: Alert, Oriented Labs: CBC, BMP 04/13/17 07:05 04/13/17 07:05 INR, PTT INR 1.27 (0.82-1.09) H 04/13/17 07:05 - ....Imaging Cat Scan: Report Reviewed, Image Reviewed Assessment/Plan 71M PMH of HTN, CAD, and Obesity s/p gastric banding who presented to the hospital with abdominal pain found to have an umbilical hernia and new onset A. Fib. patient's creatinine increased to 1.5 and concern for multiple septic emboli causing splenic infarct and possibly renal infarct. Acute kidney injury: Creatinine now 1.4 continue to hold valsartan continue to trend renal function avoid neprotoxins renally dose all meds as appropriate right kidney infarct: concern for septic emboli CTA of abdomen reviewed hold valsartan Vascular consult noted and appreciated on hep gtt check lipid profile complement c3/c4 ordered LDH is high possible transfer to tertiary facility for evaluation of intervention leukocytosis resolved new onset Afib: continue anticoagulation per primary team and cardiology for SHANNA today abdominal pain secondary to hernia likely from hernia General surgery and vascular surgery on board will go for hernia repair pending cardiology clearance major mesenteric vessels are open on CTA HTN: Continue BP control with labetalol Norvasc 10mg po daily hold ARB Obesity: counselled on weight loss and lifestyle modifications Hypokalemia: Give oral potassium replacement at bedside all questions answered and support and reassurance given to patient and possible transfer today Will follow Thank you for this consultative opportunity Case discussed with attending Dr. Muñoz and the [employer] who is the primary provider for this patient.
[2017-04-13] MEDS ORDERED: PROPOFOL 20 ML ONE ×2 (10:47)
[2017-04-13] MEDS ORDERED: PROMETHAZINE HCL 25 MG/1 ML VIAL IVPUSH PRN (10:52)
[2017-04-13] MEDS ORDERED: ONDANSETRON 4 MG/2 ML VIAL IVPUSH PRN (10:52)
[2017-04-13] MEDS ORDERED: LACTATED RINGERS SOLUTION 1,000 ML IV SCH (11:00)
[2017-04-13] MEDS ORDERED: LIDOCAINE VISCOUS 2% ORAL/TOP 20 ML UNIT-DOSE CUP MM ONE (11:04)
[2017-04-13] MEDS: VANCOMYCIN 1,000 MG in DEXTROSE 5%-WATER - 250 ML IVPB SCH (13:56)
[2017-04-13] MEDS: SODIUM CHLORIDE 1,000 ML IV SCH (13:57)
--- NOTE | 2017-04-13 14:44 | PN ---
Progress Note, Physician History of Present Illness: Denies chest pain or dyspnea. - Current Medication List Current Medications: Active Medications Amlodipine Besylate (Norvasc -) 10 mg PO HS [facility] Last Admin: 04/12/17 21:17 Dose: 10 mg Docusate Sodium (Colace -) 100 mg PO TID [facility] Last Admin: 04/13/17 05:52 Dose: Not Given Fentanyl (Sublimaze Injection -) 50 mcg IVPUSH [id number] PRN PRN Reason: PAIN-PACU ORDER X 4 DOSES ONLY Heparin Sodium (Porcine) (Heparin -) 1,000 unit IVPUSH PRN PRN PRN Reason: Heparin Last Admin: 04/12/17 08:24 Dose: 1,000 unit Heparin Sodium (Porcine) (Heparin -) 5,000 unit IVPUSH PRN PRN PRN Reason: Heparin Heparin Sodium/Dextrose (Heparin Infusion -) 25,000 units in 500 mls @ 36 mls/ hr IVPB TITR ROB; 1,800 UNITS/HR PRN Reason: Protocol Last Titration: 04/13/17 05:52 Dose: 1,900 units/hr, 38 mls/hr Vancomycin HCl 1,000 mg/ (Dextrose) 250 mls @ 250 mls/hr IVPB BID@0000,1200 [facility] Last Admin: 04/13/17 13:56 Dose: 250 mls/hr Sodium Chloride (Normal Saline -) 1,000 mls @ 100 mls/hr IV ASDIR [facility] Last Admin: 04/13/17 13:57 Dose: 100 mls/hr Lactated Ringer's (Lactated Ringers Solution) 1,000 mls @ 125 mls/hr IV ASDIR [facility] Last Admin: 04/13/17 13:57 Dose: Not Given Labetalol HCl (Normodyne -) 300 mg PO BID [facility] Last Admin: 04/13/17 09:10 Dose: 300 mg Morphine Sulfate (Morphine Injection -) 4 mg IVPUSH Q6H PRN PRN Reason: PAIN LEVEL 7 - 10 Last Admin: 04/12/17 23:13 Dose: 4 mg Ondansetron HCl (Zofran Injection) 4 mg IVPUSH Q6H PRN PRN Reason: NAUSEA AND/OR VOMITING Polyethylene Glycol (Miralax (For Daily Use) -) 17 gm PO DAILY [facility] Last Admin: 04/13/17 09:10 Dose: Not Given Potassium Phos/Sodium Phos (Phos-Nak Packet -) 1 packet PO BID [facility] Last Admin: 04/13/17 09:10 Dose: 1 packet Promethazine HCl (Phenergan Injection -) 12.5 mg IVPUSH Q6H PRN PRN Reason: NAUSEA-FOR RESCUE AFTER 15 MIN Ranitidine HCl (Zantac -) 150 mg PO DAILY [facility] Last Admin: 04/13/17 09:10 Dose: 150 mg - Objective Vital Signs: Vital Signs Temperature 97.7 F 04/13/17 11:30 Pulse Rate 85 04/13/17 12:20 Respiratory Rate 18 04/13/17 12:20 Blood Pressure 123/79 04/13/17 12:20 O2 Sat by Pulse Oximetry (%) 99 04/13/17 12:20 Constitutional: Yes: No Distress, Obese Eyes: Yes: Conjunctiva Clear, EOM Intact HENT: Yes: Atraumatic, Normocephalic Cardiovascular: Yes: Pulse Irregular. No: JVD, Murmur Respiratory: Yes: CTA Bilaterally Gastrointestinal: Yes: Normal Bowel Sounds Edema: No Psychiatric: Yes: WNL Labs: CBC, BMP 04/13/17 07:05 04/13/17 07:05 INR, PTT INR 1.27 (0.82-1.09) H 04/13/17 07:05 Assessment/Plan 71 yo male with HTN, mild CAD (per 2007 cath), obesity s/p lap band, who presented to ER with RLQ abdominal pain. Previously seen in ED last night with similar complaint of RLQ abdominal pain and was found to have R intraparietal hernia. He was admitted today with continued intermittent right lower abdominal pain and was found to be in new onset afib with HR 110s. BNP 7407. CXR negative for effusions or infiltrates. Despite elevated BNP, no complaints or CXR findings to suggest CHF. Currently rate controlled on labetalol 300 mg po bid -. was faster earlier when in pain [id number] score = 2 Echo on 04/10/17 demonstrated mildly reduced LVEF 45-50%. No CHF clinically. CT scan of abd on 04/10/17 showed splenic infarcts, umbilical hernia, renal infarcts vs pyelonephritis -> raising possibility of septic emboli (given the WBC, but blood culture negative to date) vs regular emboli from atrial fibrillation. 04/12/17 CTA of abdomen demonstrated decreased perfusion to right kidney with filling defects in right renal arterial branches. SHANNA today (04/13) demonstrated no ITZEL thrombus, but spontaneous echo contrast in LA and ITZEL. No PFO. Mild TR. Mild AV sclerosis. Trace AR. RECS: Continue labetalol 300 mg po bid for afib rate control. Uptitrate as needed. Continue amlodipine and valsartan for BP control. Contue IV heparin for now. Patient will eventually need to be restarted on Eliquis 5 bid after surgery/intervention or prior to discharge. Patient does not have any cardiac contraindications to pending surgery or invasive procedures, and he may proceed without further cardiac work-up or intervention. Patient to follow-up with his brim buster Dr. Jagjit Caballero ([facility]) upon discharge in future. Spoke with hospitalist service regarding SHANNA results. Per hospitalist service, the patient is currently being considered for possible transfer to [facility] if intervention of right renal artery thrombus is a treatment option. Will see prn. Please call with questions.
--- NOTE | 2017-04-13 16:00 | PN ---
Progress Note (short form) - Note Progress Note: Renal follow up for CKD/Renal Infarction Pt seen and examined at the bedside abd pain is controlled with morphine no sob, chest pain, N/V making urine Vital Signs Temperature 98.2 F 04/13/17 14:33 Pulse Rate 79 04/13/17 14:33 Respiratory Rate 20 04/13/17 14:33 Blood Pressure 121/70 04/13/17 14:33 O2 Sat by Pulse Oximetry (%) 99 04/13/17 12:20 Intake & Output 04/10/17 04/11/17 04/12/17 04/13/17 23:59 23:59 23:59 23:59 Intake Total 1550 2407 1650 2260 Output Total 500 500 Balance 1550 1907 1150 2260 Weight 124.341 kg 125.554 kg NAD awake and alert irregular CTA obese, + tenderness No LE edema CBC, BMP 04/13/17 07:05 04/13/17 07:05 Current Medications Amlodipine Besylate (Norvasc -) 10 mg PO HS [facility] Last Admin: 04/12/17 21:17 Dose: 10 mg Docusate Sodium (Colace -) 100 mg PO TID [facility] Last Admin: 04/13/17 05:52 Dose: Not Given Fentanyl (Sublimaze Injection -) 50 mcg IVPUSH [id number] PRN PRN Reason: PAIN-PACU ORDER X 4 DOSES ONLY Heparin Sodium (Porcine) (Heparin -) 1,000 unit IVPUSH PRN PRN PRN Reason: Heparin Last Admin: 04/12/17 08:24 Dose: 1,000 unit Heparin Sodium (Porcine) (Heparin -) 5,000 unit IVPUSH PRN PRN PRN Reason: Heparin Heparin Sodium/Dextrose (Heparin Infusion -) 25,000 units in 500 mls @ 36 mls/ hr IVPB TITR ROB; 1,800 UNITS/HR PRN Reason: Protocol Last Titration: 04/13/17 05:52 Dose: 1,900 units/hr, 38 mls/hr Sodium Chloride (Normal Saline -) 1,000 mls @ 100 mls/hr IV ASDIR ROB Last Admin: 04/13/17 13:57 Dose: 100 mls/hr Lactated Ringer's (Lactated Ringers Solution) 1,000 mls @ 125 mls/hr IV ASDIR ROB Last Admin: 04/13/17 13:57 Dose: Not Given Labetalol HCl (Normodyne -) 300 mg PO BID [facility] Last Admin: 04/13/17 09:10 Dose: 300 mg Morphine Sulfate (Morphine Injection -) 4 mg IVPUSH Q6H PRN PRN Reason: PAIN LEVEL 7 - 10 Last Admin: 04/12/17 23:13 Dose: 4 mg Ondansetron HCl (Zofran Injection) 4 mg IVPUSH Q6H PRN PRN Reason: NAUSEA AND/OR VOMITING Polyethylene Glycol (Miralax (For Daily Use) -) 17 gm PO DAILY [facility] Last Admin: 04/13/17 09:10 Dose: Not Given Potassium Phos/Sodium Phos (Phos-Nak Packet -) 1 packet PO BID [facility] Last Admin: 04/13/17 09:10 Dose: 1 packet Promethazine HCl (Phenergan Injection -) 12.5 mg IVPUSH Q6H PRN PRN Reason: NAUSEA-FOR RESCUE AFTER 15 MIN Ranitidine HCl (Zantac -) 150 mg PO DAILY [facility] Last Admin: 04/13/17 09:10 Dose: 150 mg 71 year old gentleman with PMhx of Obesity s/p gastric banding, Hypertension, CAD, who presented with complaints of Abd pain and found to have a Abd hernia and noted to have a Cr of 1.[address] of the Abd that showed lack of profusion to his right Kidney. #Right Renal infarction CTA showed lack of profusion to right kidney SHANNA showed no thrombous on A/C was seen by Vascular Sx IR does not feel that thrombolytic intervention would be benifical at this time and would have high bleeding risk #Compa/CKD Cr 1.4 today continue saline for now Trend BUN/cr hold ARB Elmer Muñoz DO
--- NOTE | 2017-04-13 18:57 | DS ---
Physical Exam: SUBJECTIVE: Patient seen and examined at bedside. OBJECTIVE: Vital Signs Period Temp Pulse Resp BP Sys/Garibay Pulse Ox Last 24 Hr 97.7 F-98.8 F 79-94 14-20 105-145/53-88 93-99 PHYSICAL EXAM GENERAL: Awake, alert, and fully oriented, in no acute distress. LUNGS: Breath sounds equal, clear to auscultation bilaterally. No wheezes, and no crackles. No accessory muscle use. HEART: Irregular S1 and S2 ABDOMEN: Soft, not distended. Mild RLQ and RUQ tenderness. Umbilical hernia. Testicular and scrotal exam unremarkable. There are no areas of erythema. MUSCULOSKELETAL: Normal range of motion at all joints. No bony deformities or tenderness. No CVA tenderness. UPPER EXTREMITIES: 2+ pulses, warm, well-perfused. No cyanosis. No clubbing. No peripheral edema. LOWER EXTREMITIES: 2+ pulses, warm, well-perfused. No calf tenderness. 1+ bilateral edema. NEUROLOGICAL: Cranial nerves II-XII intact. Normal speech. LABS Laboratory Results - last 24 hr 04/13/17 04/13/17 04/13/17 07:05 07:05 07:05 WBC 9.8 RBC 4.00 Hgb 11.7 Hct 36.2 MCV 90.6 MCH 29.3 MCHC 32.3 RDW 14.8 Plt Count 173 MPV 9.0 Neutrophils % 75.5 Lymphocytes % 11.2 D Monocytes % 11.3 H Eosinophils % 1.6 D Basophils % 0.4 PT with INR 14.40 H INR 1.27 H PTT (Actin FS) 54.5 H Sodium Potassium Chloride Carbon Dioxide Anion Gap BUN Creatinine Creat Clearance w eGFR Random Glucose Calcium Phosphorus Magnesium Total Bilirubin AST ALT Alkaline Phosphatase Total Protein Albumin Vancomycin Pre-Dose 04/13/17 04/13/17 07:05 12:45 WBC RBC Hgb Hct MCV MCH MCHC RDW Plt Count MPV Neutrophils % Lymphocytes % Monocytes % Eosinophils % Basophils % PT with INR INR PTT (Actin FS) Sodium 141 Potassium 3.2 L Chloride 105 Carbon Dioxide 28 Anion Gap 8 BUN 16 Creatinine 1.4 H Creat Clearance w eGFR 50.10 Random Glucose 102 Calcium 7.3 L Phosphorus 2.7 Magnesium 2.2 Total Bilirubin 0.6 AST 34 ALT 43 Alkaline Phosphatase 53 Total Protein 5.4 L Albumin 2.4 L Vancomycin Pre-Dose 13.861 H Current Medications Generic Name Dose Route Start Last Admin Trade Name Freq PRN Reason Stop Dose Admin Amlodipine Besylate 10 mg 04/08/17 22:00 04/12/17 21:17 Norvasc - PO 10 mg HS ROB Administration Docusate Sodium 100 mg 04/11/17 22:00 04/13/17 15:00 Colace - PO Not Given TID ROB Fentanyl 50 mcg 04/13/17 10:52 Sublimaze Injection - IVPUSH [id number] PRN PAIN-PACU ORDER X 4 DOSES ONLY Heparin Sodium (Porcine) 1,000 unit 04/09/17 22:00 04/12/17 08:24 Heparin - IVPUSH 1,000 unit PRN PRN Administration Heparin Heparin Sodium (Porcine) 5,000 unit 04/09/17 22:00 Heparin - IVPUSH PRN PRN Heparin Heparin Sodium/Dextrose 25,000 units in 500 mls @ 36 mls/hr 04/09/17 22:15 05:52 Heparin Infusion - IVPB 1,900 units/hr TITR ROB 38 mls/hr Protocol Titration 1,800 UNITS/HR Sodium Chloride 1,000 mls @ 100 mls/hr 04/12/17 12:15 04/13/17 13:57 Normal Saline - IV 100 mls/hr ASDIR ROB Administration Lactated Ringer's 1,000 mls @ 125 mls/hr 04/13/17 11:00 04/13/17 13:57 Lactated Ringers Solution IV Not Given ASDIR ROB Labetalol HCl 300 mg 04/10/17 10:00 04/13/17 09:10 Normodyne - PO 300 mg BID ROB Administration Morphine Sulfate 4 mg 04/11/17 13:59 04/12/17 23:13 Morphine Injection - IVPUSH 4 mg Q6H PRN Administration PAIN LEVEL 7 - 10 Ondansetron HCl 4 mg 04/13/17 10:52 Zofran Injection IVPUSH Q6H PRN NAUSEA AND/OR VOMITING Polyethylene Glycol 17 gm 04/11/17 13:45 04/13/17 09:10 Miralax (For Daily Use) - PO Not Given DAILY ROB Potassium Phos/Sodium Phos 1 packet 04/10/17 12:00 04/13/17 09:10 Phos-Nak Packet - PO 1 packet BID ROB Administration Promethazine HCl 12.5 mg 04/13/17 10:52 Phenergan Injection - IVPUSH Q6H PRN NAUSEA-FOR RESCUE AFTER 15 MIN Ranitidine HCl 150 mg 04/11/17 13:30 04/13/17 09:10 Zantac - PO 150 mg DAILY ROB Administration Microbiology 04/11/17 15:15 Blood - Peripheral Venous Blood Culture - Preliminary NO GROWTH OBTAINED AFTER 48 HOURS, INCUBATION TO CONTINUE FOR 3 DAYS. 04/11/17 14:55 Blood - Peripheral Venous Blood Culture - Preliminary NO GROWTH OBTAINED AFTER 48 HOURS, INCUBATION TO CONTINUE FOR 3 DAYS. 04/09/17 13:20 Blood - Peripheral Venous Blood Culture - Preliminary NO GROWTH OBTAINED AFTER 96 HOURS, INCUBATION TO CONTINUE FOR 1 DAYS. 04/09/17 13:20 Blood - Peripheral Venous Blood Culture - Preliminary NO GROWTH OBTAINED AFTER 96 HOURS, INCUBATION TO CONTINUE FOR 1 DAYS. 04/11/17 18:00 Urine - Urine Clean Catch Urine Culture - Final NO GROWTH OBTAINED 04/09/17 12:00 Urine - Urine Clean Catch Urine Culture - Final NO GROWTH OBTAINED HOSPITAL COURSE: Date of Admission:04/08/17 Date of Discharge: 04/13/17 Pre hospital course 71 year-old male with a PMH significant for HTN, CAD obesity s/p gastric banding , and umbilical hernia. Patient presented to the [facility] ED on 04/07 complaining of RLQ pain. CTAP showed a right interparietal abdominal wall hernia. Patient was given pain medication, he felt better, and was discharged home. The next morning patient returned to the ED with the same complaint of lower abdominal pain. He also complained of SOB. ECG showed patient to be in atrial fibrillation, a new finding. ER course was notable for (1) ECG afib @ 114bpm (2) BNP 7400 Imaging 04/12/17 CTA: marked decrease perfusion to right kidney, filling defects within right renal artery suspicious for thrombus; area of hypodensity withn midportion of spleen suspicious for an infarct 04/10/17 CTAP w/contrast: trace layering pleural effusions slightly increased; moderate-sized infarct in superior spleen; diminished enhancement throughout nearly the entire right kidney; moderate-size umbilical hernia; right interparietal hernia 04/09/17 CT chest: bilateral pleural effusions and atelectasis 04/07/17 CTAP: 3.7cm left renal cortical structure (neoplastic versus complex cyst). Right sided intraparietal abdominal wall hernia. Laparoscopic gastric band. Sigmoid diverticulosis. Moderate umbilical hernia. Small left inguinal hernia; small bilateral pleural effusions; interstitial pulmonary congestion Subsequent hospital course by problem list Atrial fibrillation with RVR, newly diagnosed --rate well-controlled, continue labetolol --04/13 SHANNA: no left or right atrial appendage thrombus; evidence of spontaneous echo contrast in the left atrium and left atrial appendage; left atrial appendage velocity is reduced; no PFO; mild to moderate MR; mild TR; trace AI --continue heparin drip Right renal infarction --marked decrease perfusion likely due to thrombus Splenic infarction r/o endocarditis --afebrile since 04/09; WBC peak 19.4k on 04/10, today wnl --two sets of blood and urine cultures NGTD --04/13 SHANNA: no vegetation seen on valves --stop antibiotics Abdominal pain Hernias r/o ischemic bowel --CTA imaging unrevealing of other areas of ischemia --Dr. Zazueta to follow up re: repair of hernias when more stable Systolic and diastolic heart failure --04/10/17 Echo: LV function mildly reduced, EF 45-50%, likely diastolic dysfunction, mild global hypokinesis; RV normal; mild to moderate MR; mild TR --clinical signs of HF: BNP 7400, small bilateral pleural effusions JERMAINE/CKD --peak Cr 1.3-->1.6-->1.3-->1.4 --continue IV fluids Coronary artery disease --continue amlodipine, labetolol; not on regular ASA or statin Hypertension --continue amlodipine, valsartan, labetolol FEN Fluids: NS @ 100mL/hr Electrolytes: repleted as indicated Nutrition: low sodium DVT prophylaxis: heparin drip Dispo: transfer to [facility]. FULL CODE. Minutes to complete discharge: 35 Discharge Summary Reason For Visit: AFIB CHF Current Active Problems Atrial fibrillation with RVR (Acute) CHF (congestive heart failure) (Acute) Renal infarction (Acute) Splenic infarct (Acute) Umbilical hernia with obstruction (Acute) Condition: Stable - Instructions - Home Medications Comprehensive Discharge Medication List: Ambulatory Orders Felodipine [Felodipine ER] 10 mg PO HS 01/26/18 Labetalol HCl [Normodyne -] 300 mg PO BID 04/07/17 Olmesartan Medoxomil 40 mg PO BID 04/07/17 Oxycodone HCl/Acetaminophen [Percocet 5-325 mg Tablet] 2 tab PO Q6H PRN #8 tablet MDD 8 TABS 04/08/17 This patient is new to me today: No Emergency Visit: Yes ED Registration Date: 04/08/17 Care time: The patient presented to the Emergency Department on the above date and was hospitalized for further evaluation of their emergent condition. Critical Care patient: No - Discharge Referral Referred to [facility] Med P.C.: No
[2017-04-13] MEDS: amLODIPine BESYLATE 10 MG TABLET (FP) PO SCH (21:53)
[2017-04-13] MEDS: MORPHINE SULFATE 10 MG/1 ML *VIAL IVPUSH PRN (21:53)
[2017-04-14] MEDS: DOCUSATE SODIUM 100 MG CAPSULE (FP) PO SCH (06:01)
[2017-04-14 07:38] LABS: HEMATOCRIT 36.7 % (35.4-49); MCH 29.5 pg (25.7-33.7); MCHC 32.7 g/dl (32.0-35.9); MEAN CELL VOLUME 90.2 fl (80-96); MEAN PLT VOLUME 8.9 fl (7.5-11.1); PLATELET COUNT 175 K/MM3 (134-434); RBC 4.07 M/mm3 (4.00-5.60); RDW 14.8 % (11.9-15.9)
[2017-04-14 07:59] LABS: ANION GAP 10 (8-16); BLOOD UREA NITROGEN 14 mg/dL (7-18); CALCIUM 7.6 mg/dL (8.5-10.1); CHLORIDE 107 mmol/L (98-107); CO2 26 mmol/L (21-32); CREATININE 1.4 mg/dL (0.7-1.3); GLUCOSE,RANDOM 95 mg/dL (74-106); MAGNESIUM 2.3 mg/dL (1.8-2.4); PHOSPHOROUS 3.1 mg/dL (2.5-4.9); POTASSIUM 3.1 mmol/L (3.5-5.1); SODIUM 143 mmol/L (136-145)
[2017-04-14] MEDS: HEPARIN INFUSION - 25,000 UNITS/500 ML INFUS.BAG IVPB SCH (08:52)
[2017-04-14 09:02] VITALS: PULSE 83; TEMP 98.8
[2017-04-14] MEDS ORDERED: POTASSIUM CHLORIDE TABS 20 MEQ TABLET.ER (FP) PO SCH (09:45)
[2017-04-14] MEDS: LABETALOL HCL 100 MG TABLET (FP) PO SCH (09:48)
[2017-04-14] MEDS: RANITIDINE HCL 150 MG TABLET (FP) PO SCH (09:48)
[2017-04-14] MEDS: NAPH,MB-DB/K PH,MBDB POWDER PACKET PO SCH (09:49)
[2017-04-14] MEDS ORDERED: APIXABAN 5 MG TABLET PO SCH (11:45)
--- NOTE | 2017-04-14 13:44 | PN ---
Progress Note (short form) - Note Progress Note: Renal follow up for CKD/Renal Infarction Pt seen and examined at the bedside no acute complaints very frustrated about diagnosis or hospital course Vital Signs Temperature 98.8 F 04/14/17 09:01 Pulse Rate 83 04/14/17 09:01 Respiratory Rate 20 04/14/17 09:01 Blood Pressure 134/78 04/14/17 09:01 O2 Sat by Pulse Oximetry (%) 95 04/13/17 21:00 Intake & Output 04/11/17 04/12/17 04/13/17 04/14/17 23:59 23:59 23:59 23:59 Intake Total 2407 1650 2500 1876 Output Total 500 500 Balance 1907 1150 2500 1876 Weight 124.341 kg 125.554 kg 125.362 kg NAD awake and alert No LE edema CBC, BMP 04/14/17 05:45 04/14/17 05:45 Laboratory Tests 04/14/17 05:45 Calcium 7.6 L Phosphorus 3.1 Magnesium 2.3 Current Medications Amlodipine Besylate (Norvasc -) 10 mg PO HS [facility] Last Admin: 04/13/17 21:53 Dose: 10 mg Apixaban (Eliquis -) 5 mg PO BID [facility] Last Admin: 04/14/17 12:08 Dose: 5 mg Docusate Sodium (Colace -) 100 mg PO TID [facility] Last Admin: 04/14/17 06:01 Dose: Not Given Labetalol HCl (Normodyne -) 300 mg PO BID [facility] Last Admin: 04/14/17 09:48 Dose: 300 mg Potassium Chloride (K-Dur -) 40 meq PO Q6H [facility] Stop: 04/14/17 21:46 Last Admin: 04/14/17 10:31 Dose: 40 meq 71 year old gentleman with PMhx of Obesity s/p gastric banding, Hypertension, CAD, who presented with complaints of Abd pain and found to have a Abd hernia and noted to have a Cr of 1.[address] of the Abd that showed lack of profusion to his right Kidney. #Right Renal infarction CTA showed lack of profusion to right kidney SHANNA showed no thrombus pt is not a canidate for thrombolysis continue A/C with Eliquis recommended outpatient renal follow up #Compa/CKD Cr stable s/p infarction and contrast exposure can be off IVF advised pt to avoid nsaids would maintain off ARB on discharge as to avoid another variable that can affect his kidney function at this time Thank you Elmer Muñoz DO
[2017-04-14 14:36] VITALS: BP 136/86
== END 2017-04-14 16:30 | disposition home or self-care (01) | DRG 309 ==
LOC: FER 09:14 → FM/S 12:30 → J4S 04-11 13:45
PROVIDERS: ADMIT Internal Medicine; ATTEND Nurse Practitioner Acute Care
PROC: B246ZZ4 Ultrasonography of Right and Left Heart, Transesophageal (ICD-10-PCS; principal; 2017-04-13 11:00)
DX: I48.91 Unspecified atrial fibrillation (principal); I13.0 Hypertensive heart and chronic kidney disease with heart failure and stage 1 through stage 4 chronic kidney disease, or unspecified chronic kidney disease; N17.9 Acute kidney failure, unspecified; N28.0 Ischemia and infarction of kidney; Z68.41 Body mass index [BMI] 40.0-44.9, adult; N12 Tubulo-interstitial nephritis, not specified as acute or chronic; K42.0 Umbilical hernia with obstruction, without gangrene; I50.40 Unspecified combined systolic (congestive) and diastolic (congestive) heart failure; N18.9 Chronic kidney disease, unspecified; E66.9 Obesity, unspecified; I25.10 Atherosclerotic heart disease of native coronary artery without angina pectoris; I34.0 Nonrheumatic mitral (valve) insufficiency; E87.6 Hypokalemia; D73.5 Infarction of spleen; D72.829 Elevated white blood cell count, unspecified
CPT/HCPCS: 36415; 71046-TC-FY; 71250-TC; 74175-TC; 74176-TC; 74177-TC; 80048; 80053; 81003; 81015; 82550; 82553; 82570; 83605; 83615; 83735; 83880; 84100; 84300; 84484; 85025; 85027; 85610; 85651; 85730; 86140; 87040; 87086; 93005; 93306-TC; 93312; 93325; 93970-TC; 99282-25; 99284-25; G0480; J1644